=== PATIENT | male | born 1975 | race Two or more races ===

== ENCOUNTER 2017-01-05 09:03 | Inpatient (IN) | payer OTHER ==
[2017-01-05] VITALS (15 sets, daily range): BP systolic 100–159; BP diastolic 64–109
[~2017-01-05] VITALS: Ht 172.7 cm; Wt 111.6 kg
[2017-01-05] MEDS ORDERED: IV NORMAL SALINE 500ML BAG 500 ML IV ONE (11:30)
[2017-01-05] MEDS ORDERED: NORT75CA PO (12:12)
[2017-01-05] MEDS ORDERED: FURO-68 PO (12:12)
[2017-01-05] MEDS ORDERED: METF10002 PO (12:12)
[2017-01-05] MEDS ORDERED: NORT50CA PO (12:12)
[2017-01-05] MEDS ORDERED: DIPH25CA58 PO (12:12)
[2017-01-05] MEDS ORDERED: METO50TA2 PO (12:12)
[2017-01-05] MEDS ORDERED: ATOR10TA60 PO (12:12)
[2017-01-05] MEDS ORDERED: CICL6.1H IH (12:12)
[2017-01-05] MEDS ORDERED: WARF4TAB7 PO (12:42)
[2017-01-05] MEDS ORDERED: IPRA0.2S5 NEB (12:42)
[2017-01-05] MEDS ORDERED: ALBU2.5V14 NEB (12:42)
[2017-01-05] MEDS ORDERED: PROAIR RESPICL90 MCG IH (12:42)
[2017-01-05] MEDS ORDERED: NPH,100V SQ (12:42)
[2017-01-05] MEDS ORDERED: CALC200T3 PO (12:42)
[2017-01-05] MEDS ORDERED: INSU100V5 IJ ×2 (12:42)
[2017-01-05] MEDS ORDERED: MORPHINE SULFATE 2 MG/ML DISP.SYRIN. IV PRN (13:00)
[2017-01-05] MEDS ORDERED: ONDANSETRON PF 4 MG/2 ML VIAL. IV PRN (13:00)
[2017-01-05] MEDS ORDERED: ACETAMINOPHEN 325 MG TABLET. PO PRN (13:00)
[2017-01-05] MEDS ORDERED: PIP/TAZO PER PHARMACY MC PRN (13:15)
[2017-01-05] MEDS ORDERED: VANCOMYCIN PER PHARMACY MC PRN (13:15)
[2017-01-05] MEDS ORDERED: VANCOMYCIN 2 GM in IV NORMAL SALINE 500ML BAG 500 ML IV SCH (13:15)
[2017-01-05] MEDS ORDERED: CALCIUM CARBONATE 500 MG TAB.CHEW PO PRN (13:15)
[2017-01-05] MEDS ORDERED: DEXTROSE 50% 25 GM / 50ML DISP.SYRIN. IV PRN (13:15)
[2017-01-05 13:44] LABS: HCO3 ABG 31 mmol/L (21-28); PH ABG 7.29 (7.35-7.45); PO2 ABG 91 mmHg (75-108); SAT O2 ABG 96 % (92-99)
[2017-01-05 13:48] LABS: FIO2 ABG 45; PCO2 ABG 66 mmHg (35-46)
[2017-01-05] MEDS ORDERED: FUROSEMIDE 40 MG TABLET PO SCH (14:00)
[2017-01-05] MEDS ORDERED: methylPREDNISolone SOD SUCC PF 40 MG/ML VIAL. IV SCH (14:00)
[2017-01-05] MEDS ORDERED: VANCOMYCIN 2 GM in IV NORMAL SALINE 500ML BAG 500 ML IV ONE (14:00)
[2017-01-05] MEDS ORDERED: FUROSEMIDE 20 MG/2 ML VIAL IVP ONE (14:00)
[2017-01-05 14:19] LABS: BASO % 0 % (0-3); EOS % 0 % (0-3); HEMATOCRIT 35.7 % (39.0-53.0); HEMOGLOBIN 11.7 g/dL (13.0-17.5); LYMPH # 0.3 x10^3/uL (1.0-4.8); LYMPH % 2 % (24-48); MEAN CORPUSCULAR HEMOGLOBIN 29 pg (25-35); MEAN CORPUSCULAR HGB CONC 33 g/dL (31-37); MEAN CORPUSCULAR VOLUME 90 fL (79-100); MONO % 4 % (0-9); NEUT % 94 % (31-73); PLATELET COUNT 269 x10^3/uL (140-400); RED BLOOD COUNT 3.99 x10^6/uL (4.30-5.70); RED CELL DISTRIBUTION WIDTH 14.8 % (11.5-14.5); WHITE BLOOD COUNT 15.2 x10^3/uL (4.0-11.0)
--- NOTE | 2017-01-05 14:28 | EKG ---
[facility] [address] [place] [address] Test Date: 2017-01-05 Test Time: 14:27:03 Pat Name: CANELO VÁSQUEZ Department: Room: 105 1 Gender: M Admissions Director: ANDREI : 1975 Requested By: ADEN CEE Order Number: [id number] Reading MD: Measurements Intervals [place] Rate: 122 P: -97 LA: 128 QRS: 99 QRSD: 106 T: 65 QT: 358 QTc: 511 Interpretive Statements SINUS TACHYCARDIA RIGHTWARD AXIS T ABNORMALITY IN ANTERIOR LEADS ABNORMAL ECG RI6.01 No previous ECG available for comparison
[2017-01-05 14:37] LABS: CALCIUM 8.7 mg/dL (8.5-10.1); GFR 83.2; POTASSIUM 4.8 mmol/L (3.5-5.1)
--- NOTE | 2017-01-05 14:44 | CONS ---
DATE OF CONSULTATION: 01/05/2017 ATTENDING PHYSICIAN: Dr. Caballero. REASON FOR CONSULTATION: Respiratory failure, pneumonia. HISTORY OF PRESENT ILLNESS: The patient is a 41-year-old, morbidly obese male who has history of sarcoidosis diagnosed 10 years ago. He states he is on prednisone 20 mg daily. 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 He also has history of pulmonary embolism over 2 years ago for which he is on Coumadin. He was brought into [facility] with increasing shortness of breath. He was recently treated with Z-JASPER for respiratory tract infection. His oral steroids were increased from 20-50 mg. In the ER, he was in respiratory distress. He had abnormal arterial blood gases, which showed acute respiratory acidosis with a pH of 7.28, pCO2 of 67 and pO2 of 439 on 100% oxygen. He is now on 40% oxygen. He is on BiPAP. He is being transferred to the ICU at [facility] for further care. I have reviewed the patient's chest x-ray. There was no old x-ray available for comparison. There was diffuse bilateral patchy infiltrates, some of them appear nodular. No known cancer. PAST MEDICAL HISTORY: 1. History of sarcoidosis diagnosed 10 years ago, chronically on 20 mg of prednisone. 2. History of pulmonary embolism diagnosed 2 years ago, chronically on Coumadin. 3. History of tobaccoism, quit 10 years ago. Possible underlying chronic obstructive pulmonary disease. 4. Suspected TANNER. 5. Possible cor pulmonale. PAST SURGICAL HISTORY: No recent surgery. ALLERGIES: PENICILLIN AND CODEINE. MEDICATIONS: From [facility] were reviewed. REVIEW OF SYSTEMS: Twelve-point system obtained. Pertinent positives discussed in history of present illness, otherwise noncontributory. All systems that were negative were reviewed as well. SOCIAL HISTORY: Smoked for about 20 years before quitting 10 years ago. PHYSICAL EXAMINATION: GENERAL: He is comfortable while on BiPAP. VITAL SIGNS: Stable, afebrile, pulse ox is 99% on 40% FiO2 via BiPAP. HEENT: Sclerae nonicteric. NECK: Supple. LUNGS: With anterior rhonchi bilaterally. CARDIOVASCULAR: Regular rate and rhythm. ABDOMEN: Soft, obese. EXTREMITIES: With 1+ pitting edema. LABORATORY DATA: Reviewed. His lactic acid was 1.5. Troponin 0.057. ABGs with a pH of 7.28, pCO2 of 67 and pO2 of 439 on 100% BiPAP. His BUN is 12, creatinine 0.9, bicarbonate 38. White cell count 17.7, hemoglobin 4.1 and platelets are 182. IMPRESSION: 1. 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 I cannot exclude superimposed congestive left heart or right heart failure. 2. Chronic steroid dependent sarcoidosis. Some of the parenchymal abnormalities seen on the chest x-ray may be related to interstitial fibrotic changes. We will obtain CT chest for further evaluation. 3. History of pulmonary embolism diagnosed 2 years ago, on chronic anticoagulation. His INR was 3.8. We will have to hold Coumadin till his INR is in the therapeutic range. 4. Possible underlying chronic obstructive pulmonary disease. 5. Obesity with suspected obstructive sleep apnea. RECOMMENDATIONS: 1. Continue with present BiPAP. 2. Follow the ABGs and make necessary adjustments 3. Noncontrast CT chest to better evaluate for parenchymal abnormalities/ fibrotic processes and to rule out any nodular infiltrates. 4. Hold Coumadin and then restart it when the INR is between 2 and 3. 5. Obtain echocardiogram to assess for LV function. 6. Mild diuresis. 7. We will ask more detailed history about his pulmonary embolism once he is off the BiPAP. 8. Discussed with RN and RT. We will follow along with you. Critical care time 39 minutes. CHEVY SHEFFIELD MD DR: BRITNI/vijay JOB#: [id number] / [id number] ARLENE
[2017-01-05] MEDS ORDERED: IOHEXOL 300 MG/ML 75 ML VIAL IV ONE (14:45)
[2017-01-05] MEDS ORDERED: CONTRAST GIVEN MC PRN (15:00)
[2017-01-05] MEDS: methylPREDNISolone SOD SUCC PF 40 MG/ML VIAL. IV SCH ×2 (15:10→21:38)
[2017-01-05] MEDS: HEPARIN PF for SUB-Q USE 5,000 UNIT/0.5 ML VIAL. SQ SCH ×2 (15:11→21:39)
[2017-01-05] MEDS: PIPERACILLIN/TAZOBACTAM 4.5 GM in IV NORMAL SALINE 100ML 100 ML IV SCH ×2 (15:13→18:00)
[2017-01-05] MEDS: PANTOPRAZOLE 40 MG TABLET. PO SCH (15:14)
[2017-01-05] MEDS: METOPROLOL TART IMMED RELEASE 50 MG TABLET PO SCH ×2 (15:14→20:55)
[2017-01-05 15:28] LABS: PLT ESTIMATE ADEQUATE (ADEQUATE); POLYCHROMASIA SLIGHT
[2017-01-05] MEDS ORDERED: hydrALAZINE 20 MG/ML VIAL. IVP PRN (15:30)
--- NOTE | 2017-01-05 15:34 | PDOC1 ---
History and Physical Date of Admission Date of Admission 01/05/17 Identification/Chief Complaint Chief Complaint sob Problems: Source Source: Chart review History of Present Illness History of Present Illness 41yo M, from intermediate, h/o sarcoidosis, PE on coumadin, was transferred from [facility] for resp failure. Pt is on bipap seen in ICU, lethargic, cannot provide history. [facility], pt got PNA, SOB WAS on azithromycin for 5days, no improvement, came to ER. denies cough, ABG showed PH 7.28/pco2 66/po2 39 on RA, then put on Bipap. pt has HR 140s, INR 3.8 today chronically on prednisone 20mg daily, recent up to 50mg for sob. Past Medical History Past Medical History sarcodosis, htn pe dm2 Past Surgical History Past Surgical History: No pertinent history Family History Family History: Diabetes Social History Smoke: Quit ALCOHOL: social Drugs: None Current Problem List Problem List Problems Medical Problems: (1) Respiratory failure Status: Acute Current Medications Current Medications Current Medications Medications (Trade) Dose Ordered Sig/Roxi Start Time Stop Time Status Last Admin Dose Admin Acetaminophen (Tylenol) 650 mg PRN Q6HRS PRN 01/05/17 13:00 Acetaminophen/ Hydrocodone Bitart (Lortab 5/325) 1 tab PRN Q4HRS PRN 01/05/17 13:00 Albuterol Sulfate (Ventolin Neb Soln) 2.5 mg RTQID 01/05/17 16:00 Albuterol/ Ipratropium 3 ml 3 ml RTQID 01/05/17 16:00 Atorvastatin Calcium (Lipitor) 10 mg QHS 01/05/17 21:00 Budesonide (Pulmicort) 0.5 mg RTBID 01/05/17 20:00 Calcium Carbonate/ Glycine (Tums) 400 mg PRN TID PRN 01/05/17 13:15 Dextrose 12.5 gm 12.5 gm PRN Q15MIN PRN 01/05/17 13:15 Diphenhydramine HCl (Benadryl) 25 mg TID PRN PRN 01/05/17 13:15 Furosemide (Lasix) 40 mg DAILY 01/06/17 09:00 Heparin Sodium (Porcine) 5,000 unit Q8HRS 01/05/17 14:00 01/05/17 15:11 5,000 UNIT Info (Do NOT chart on this entry -- for MONITORING) 1 each PRN DAILY PRN 01/05/17 15:00 01/07/17 14:59 Insulin Aspart (Novolog) 0-9 UNITS TIDWMEALS 01/05/17 17:00 Insulin Detemir (Levemir) 20 units QHS 01/05/17 21:00 Iohexol (Omnipaque 300 Mg/ml) 75 ml 1X ONCE 01/05/17 14:45 01/05/17 14:46 DC Levofloxacin/ Dextrose (LEVAQUIN 500mg PREMIX) 100 ml @ 100 mls/hr Q24H 01/05/17 14:00 01/05/17 15:16 100 MLS/HR Methylprednisolone Sodium Succinate (Solu-Medrol 40mg Vial) 40 mg Q8HRS 01/05/17 14:00 UNV Metoprolol Tartrate (Lopressor) 50 mg BID 01/05/17 14:00 01/05/17 15:14 50 MG Morphine Sulfate 2 mg PRN Q1HR PRN 01/05/17 13:00 Nortriptyline HCl (Pamelor) 75 mg QHS 01/05/17 21:00 Ondansetron HCl (Zofran) 4 mg PRN Q6HRS PRN 01/05/17 13:00 Pantoprazole Sodium 40 mg 40 mg DAILYAC 01/05/17 14:00 01/05/17 15:14 40 MG Piperacillin Sod/ Tazobactam Sod (Zosyn Per Pharmacy) 1 each PRN DAILY PRN 01/05/17 13:15 Piperacillin Sod/ Tazobactam Sod/ Sodium Chloride (Zosyn/Iv Sodium Chloride 0.9% 100ml) 100 ml @ 200 mls/hr Q6HRS 01/05/17 14:00 01/05/17 15:13 200 MLS/HR Vancomycin HCl (Vanco Per Pharmacy) 1 each PRN DAILY PRN 01/05/17 13:15 Vancomycin HCl/ Sodium Chloride (Iv Sodium Chloride 0.9% 500ml Bag) 500 ml @ 250 mls/hr ONCE ONCE 01/05/17 14:00 01/05/17 15:59 01/05/17 15:15 250 MLS/HR Warfarin Sodium (Coumadin - No Dose Today) 1 each 1X WARF ONCE 01/05/17 16:00 01/05/17 16:01 Warfarin Sodium (Coumadin Per Pharmacy) 1 each PRN DAILY PRN 01/05/17 13:15 Warfarin Sodium (Coumadin) 4 mg DAILY 01/06/17 09:00 UNV Allergies Allergies Allergies Coded Allergies Type Severity Reaction Last Updated Verified Penicillins Allergy Intermediate TOLERATES CEFTRIAXONE 01/05/17 No codeine Allergy Intermediate 01/05/17 No ROS Review of System CONSTITUTIONAL: No fever or chills EYES: No recent changes SKIN: No rash or itching CARDIOVASCULAR: No chest pain, syncope, palpitations, or edema RESPIRATORY: No SOB or cough GASTROINTESTINAL: No nausea, vomiting or abdominal pain NEUROLOGICAL: No headaches or weakness ENDOCRINE: No cold or heat intolerance GENITOURINARY: No urgency or frequency of urination MUSCULOSKELETAL: No back pain or joint pain LYMPHATICS: No enlarged lymph nodes PSYCHIATRIC: No anxiety or depression Physical Exam Physical Exam GEN.: No apparent distress.. lethargic, no answer question or follow commands. HEENT: Head is normocephalic, atraumatic NECK: Supple. LUNGS: bl severe decreased bs HEART: RRR, S1, S2 present. Peripheral pulses intact. tachycardia ABDOMEN: Soft, nontender. Positive bowel sounds. EXTREMITIES: Without any cyanosis. bl leg trace edema NEUROLOGIC: Normal speech, normal tone PSYCHIATRIC: Normal affect, normal mood. SKIN: No ulcerations Vitals Vitals Vital Signs Date Time Temp Pulse Resp B/P Pulse Ox O2 Delivery O2 Flow Rate FiO2 01/05/17 15:14 124 159/91 Labs Labs Laboratory Tests Test 01/05/17 13:30 01/05/17 13:50 O2 Saturation 96% (92-99) Arterial Blood pH 7.29 (7.35-7.45) Arterial Blood pCO2 at Patient Temp 66mmHg (35-46) Arterial Blood pO2 at Patient Temp 91mmHg (75-108) Arterial Blood HCO3 31mmol/L (21-28) Arterial Blood Base Excess 3mmol/L (-3-3) FiO2 45 White Blood Count 15.2x10^3/uL (4.0-11.0) Red Blood Count 3.99x10^6/uL (4.30-5.70) Hemoglobin 11.7g/dL (13.0-17.5) Hematocrit 35.7% (39.0-53.0) Mean Corpuscular Volume 90fL (79-100) Mean Corpuscular Hemoglobin 29pg (25-35) Mean Corpuscular Hemoglobin Concent 33g/dL (31-37) Red Cell Distribution Width 14.8% (11.5-14.5) Platelet Count 269x10^3/uL (140-400) Neutrophils (%) (Auto) 94% (31-73) Lymphocytes (%) (Auto) 2% (24-48) Monocytes (%) (Auto) 4% (0-9) Eosinophils (%) (Auto) 0% (0-3) Basophils (%) (Auto) 0% (0-3) Neutrophils # (Auto) 14.3x10^3uL (1.8-7.7) Lymphocytes # (Auto) 0.3x10^3/uL (1.0-4.8) Monocytes # (Auto) 0.6x10^3/uL (0.0-1.1) Eosinophils # (Auto) 0.0x10^3/uL (0.0-0.7) Basophils # (Auto) 0.0x10^3/uL (0.0-0.2) Sodium Level 137mmol/L (136-145) Potassium Level 4.8mmol/L (3.5-5.1) Chloride Level 98mmol/L (98-107) Carbon Dioxide Level 33mmol/L (21-32) Anion Gap 6 (6-14) Blood Urea Nitrogen 14mg/dL (8-26) Creatinine 1.0mg/dL (0.7-1.3) Estimated GFR (Cockcroft-Gault) 83.2 Glucose Level 227mg/dL (70-99) Calcium Level 8.7mg/dL (8.5-10.1) Laboratory Tests Test 01/05/17 13:30 01/05/17 13:50 O2 Saturation 96% (92-99) Arterial Blood pH 7.29 (7.35-7.45) Arterial Blood pCO2 at Patient Temp 66mmHg (35-46) Arterial Blood pO2 at Patient Temp 91mmHg (75-108) Arterial Blood HCO3 31mmol/L (21-28) Arterial Blood Base Excess 3mmol/L (-3-3) FiO2 45 White Blood Count 15.2x10^3/uL (4.0-11.0) Red Blood Count 3.99x10^6/uL (4.30-5.70) Hemoglobin 11.7g/dL (13.0-17.5) Hematocrit 35.7% (39.0-53.0) Mean Corpuscular Volume 90fL (79-100) Mean Corpuscular Hemoglobin 29pg (25-35) Mean Corpuscular Hemoglobin Concent 33g/dL (31-37) Red Cell Distribution Width 14.8% (11.5-14.5) Platelet Count 269x10^3/uL (140-400) Neutrophils (%) (Auto) 94% (31-73) Lymphocytes (%) (Auto) 2% (24-48) Monocytes (%) (Auto) 4% (0-9) Eosinophils (%) (Auto) 0% (0-3) Basophils (%) (Auto) 0% (0-3) Neutrophils # (Auto) 14.3x10^3uL (1.8-7.7) Lymphocytes # (Auto) 0.3x10^3/uL (1.0-4.8) Monocytes # (Auto) 0.6x10^3/uL (0.0-1.1) Eosinophils # (Auto) 0.0x10^3/uL (0.0-0.7) Basophils # (Auto) 0.0x10^3/uL (0.0-0.2) Sodium Level 137mmol/L (136-145) Potassium Level 4.8mmol/L (3.5-5.1) Chloride Level 98mmol/L (98-107) Carbon Dioxide Level 33mmol/L (21-32) Anion Gap 6 (6-14) Blood Urea Nitrogen 14mg/dL (8-26) Creatinine 1.0mg/dL (0.7-1.3) Estimated GFR (Cockcroft-Gault) 83.2 Glucose Level 227mg/dL (70-99) Calcium Level 8.7mg/dL (8.5-10.1) VTE Prophylaxis Ordered VTE Prophylaxis Devices: Yes VTE Pharmacological Prophylaxi: No Assessment/Plan Assessment/Plan 1 acute hypoxic and hypercapnic resp failure 2. h/o sarcoidosis 3. h/o PE on coumadin 4. HAP 5. obesity 6. DM2 7. HTN 8. SINUS tachycardia 9. from intermediate 10. sepsis with 4 plan: 1. pulm consult 2. ICU care, on bipap for now 3. check CT chest to rule out PE, and see if really has HAP, ALSO sarcoidosis 4. steroid, duoneb dvt, gi ppx add insulin, SSI hold warfarin for today, INR daily ABG STAT ADEN CEE MD Jan 05, 2017 15:33
[2017-01-05] MEDS: IPRATRPIUM/ALBUTEROL 0.5/2.5MG 3 ML NEBU. NEB SCH ×2 (15:38→20:13)
[2017-01-05] MEDS: ALBUTEROL SULFATE 2.5 MG/3 ML NEBU. NEB SCH ×2 (16:00→20:00)
[2017-01-05 16:36] LABS: HCO3 ABG 31 mmol/L (21-28); PCO2 ABG 57 mmHg (35-46); PH ABG 7.35 (7.35-7.45); PO2 ABG 65 mmHg (75-108); SAT O2 ABG 92 % (92-99)
[2017-01-05 16:38] LABS: FIO2 ABG 35
--- NOTE | 2017-01-05 17:31 | RAD ---
INDICATION: 41-year-old male with respiratory failure, shortness of air, pneumonia, sarcoidosis. COMPARISON: None TECHNIQUE: Axial CT images obtained through the chest following the intravenous administration of 75 cc of Omni 300, utilizing an angiogram protocol. 3D images processed per protocol. One or more of the following individualized dose reduction techniques were utilized for this examination: 1. Automated exposure control; 2. Adjustment of the mA and/or kV according to patient size; 3. Use of iterative reconstruction technique. FINDINGS: The pulmonary arteries are adequately opacified without intraluminal filling defect to suggest pulmonary embolus. The aorta is normal in caliber. The heart is normal in size without pericardial effusion. Prominent mediastinal or hilar lymph nodes are present, likely reactive in nature. There are diffuse ground-glass and more nodular, dense opacities present throughout both lungs. There is no pleural effusion or pneumothorax. The central airways appear patent. The visualized osseous structures and overlying soft tissues demonstrate no acute or suspicious finding. The visualized upper abdomen demonstrates no acute finding. IMPRESSION: No CT evidence of pulmonary embolus. Diffuse ground-glass and nodular opacities throughout both lungs, may represent an infectious etiology although findings may also be secondary to known history of sarcoidosis. Electronically signed by: Kaykay Mahmood (Jan 05, 2017 17:29:58)
[2017-01-05] MEDS: INSULIN ASPART 300 UNITS/3 ML INSULN.PEN SQ SCH ×2 (17:34→17:35)
[2017-01-05] MEDS: HYDROCODONE/APAP 5/325MG TABLET. PO PRN (19:39)
[2017-01-05] MEDS: BUDESONIDE 0.5 MG/2 ML NEBU NEB SCH (20:13)
[2017-01-05] MEDS: ATORVASTATIN CALCIUM 10 MG TABLET. PO SCH (20:52)
[2017-01-05] MEDS: NORTRIPTYLINE 25 MG CAPSULE PO SCH (20:53)
[2017-01-05] MEDS: INSULIN DETEMIR 300 UNITS/3 ML INSULN.PEN. SQ SCH (20:56)
[2017-01-05] MEDS: VANCOMYCIN 1.5 GM in IV NORMAL SALINE 500ML BAG 500 ML IV SCH (22:34)
[2017-01-06] VITALS (13 sets, daily range): BP systolic 114–144; BP diastolic 66–91
[2017-01-06] MEDS: PIPERACILLIN/TAZOBACTAM 4.5 GM in IV NORMAL SALINE 100ML 100 ML IV SCH ×5 (00:59→23:58)
[2017-01-06] MEDS: HYDROCODONE/APAP 5/325MG TABLET. PO PRN ×4 (02:17→19:38)
[2017-01-06 03:25] LABS: BASO % 0 % (0-3); EOS % 0 % (0-3); HEMATOCRIT 32.5 % (39.0-53.0); HEMOGLOBIN 10.8 g/dL (13.0-17.5); LYMPH # 0.5 x10^3/uL (1.0-4.8); LYMPH % 3 % (24-48); MEAN CORPUSCULAR HEMOGLOBIN 29 pg (25-35); MEAN CORPUSCULAR HGB CONC 33 g/dL (31-37); MEAN CORPUSCULAR VOLUME 88 fL (79-100); MONO % 5 % (0-9); NEUT % 91 % (31-73); PLATELET COUNT 286 x10^3/uL (140-400); RED CELL DISTRIBUTION WIDTH 14.7 % (11.5-14.5); WHITE BLOOD COUNT 14.9 x10^3/uL (4.0-11.0)
[2017-01-06 03:34] LABS: INR 4.4 (0.8-1.1); PROTHROMBIN TIME PATIENT 39.7 SEC (11.7-14.0)
[2017-01-06 03:42] LABS: CALCIUM 8.1 mg/dL (8.5-10.1); CREATININE 0.6 mg/dL (0.7-1.3); POTASSIUM 4.4 mmol/L (3.5-5.1)
[2017-01-06] MEDS: methylPREDNISolone SOD SUCC PF 40 MG/ML VIAL. IV SCH ×3 (05:30→20:59)
[2017-01-06] MEDS: HEPARIN PF for SUB-Q USE 5,000 UNIT/0.5 ML VIAL. SQ SCH (05:31)
[2017-01-06] MEDS: VANCOMYCIN 1.5 GM in IV NORMAL SALINE 500ML BAG 500 ML IV SCH (06:29)
[2017-01-06] MEDS: INSULIN ASPART 300 UNITS/3 ML INSULN.PEN SQ SCH ×6 (07:30→17:50)
[2017-01-06] MEDS: IPRATRPIUM/ALBUTEROL 0.5/2.5MG 3 ML NEBU. NEB SCH ×4 (07:55→21:19)
[2017-01-06] MEDS: BUDESONIDE 0.5 MG/2 ML NEBU NEB SCH ×2 (07:55→21:19)
[2017-01-06] MEDS ORDERED: WARFARIN 4 MG TABLET. PO SCH (09:00)
--- NOTE | 2017-01-06 10:09 | PDOC ---
PULMONARY PROGRESS NOTES Subjective feels better,off BIPAP Vitals Vital Signs Date Time Temp Pulse Resp B/P Pulse Ox O2 Delivery O2 Flow Rate FiO2 01/06/17 07:55 98 Venturi Mask 9.0 01/06/17 06:33 24 01/06/17 06:00 98 132/73 01/06/17 04:00 97.7 97.7 General: Alert, No acute distress Lungs: Other (decrease bs) Cardiovascular: S1 Abdomen: Soft Neuro Exam: Alert Extremities: Other (1+edema) Labs Laboratory Tests Test 01/05/17 12:17 01/05/17 13:30 01/05/17 13:40 01/05/17 13:50 Nasal Screen MRSA (PCR) Negative (Negative) O2 Saturation 96% (92-99) Arterial Blood pH 7.29 (7.35-7.45) Arterial Blood pCO2 at Patient Temp 66mmHg (35-46) Arterial Blood pO2 at Patient Temp 91mmHg (75-108) Arterial Blood HCO3 31mmol/L (21-28) Arterial Blood Base Excess 3mmol/L (-3-3) FiO2 45 Lactic Acid Level 2.7mmol/L (0.4-2.0) White Blood Count 15.2x10^3/uL (4.0-11.0) Red Blood Count 3.99x10^6/uL (4.30-5.70) Hemoglobin 11.7g/dL (13.0-17.5) Hematocrit 35.7% (39.0-53.0) Mean Corpuscular Volume 90fL (79-100) Mean Corpuscular Hemoglobin 29pg (25-35) Mean Corpuscular Hemoglobin Concent 33g/dL (31-37) Red Cell Distribution Width 14.8% (11.5-14.5) Platelet Count 269x10^3/uL (140-400) Neutrophils (%) (Auto) 94% (31-73) Lymphocytes (%) (Auto) 2% (24-48) Monocytes (%) (Auto) 4% (0-9) Eosinophils (%) (Auto) 0% (0-3) Basophils (%) (Auto) 0% (0-3) Neutrophils # (Auto) 14.3x10^3uL (1.8-7.7) Lymphocytes # (Auto) 0.3x10^3/uL (1.0-4.8) Monocytes # (Auto) 0.6x10^3/uL (0.0-1.1) Eosinophils # (Auto) 0.0x10^3/uL (0.0-0.7) Basophils # (Auto) 0.0x10^3/uL (0.0-0.2) Segmented Neutrophils % 88% (35-66) Band Neutrophils % 6% (0-9) Lymphocytes % 2% (24-48) Atypical Lymphocytes % (Manual) 1% (0-0) Monocytes % 3% (0-10) Platelet Estimate Adequate (ADEQUATE) Polychromasia Slight Basophilic Stippling Present Sodium Level 137mmol/L (136-145) Potassium Level 4.8mmol/L (3.5-5.1) Chloride Level 98mmol/L (98-107) Carbon Dioxide Level 33mmol/L (21-32) Anion Gap 6 (6-14) Blood Urea Nitrogen 14mg/dL (8-26) Creatinine 1.0mg/dL (0.7-1.3) Estimated GFR (Cockcroft-Gault) 83.2 Glucose Level 227mg/dL (70-99) Calcium Level 8.7mg/dL (8.5-10.1) Test 01/05/17 16:25 01/05/17 16:52 01/05/17 20:52 01/06/17 03:10 O2 Saturation 92% (92-99) Arterial Blood pH 7.35 (7.35-7.45) Arterial Blood pCO2 at Patient Temp 57mmHg (35-46) Arterial Blood pO2 at Patient Temp 65mmHg (75-108) Arterial Blood HCO3 31mmol/L (21-28) Arterial Blood Base Excess 4mmol/L (-3-3) FiO2 35 Glucose (Fingerstick) 271mg/dL (70-99) 232mg/dL (70-99) White Blood Count 14.9x10^3/uL (4.0-11.0) Red Blood Count 3.70x10^6/uL (4.30-5.70) Hemoglobin 10.8g/dL (13.0-17.5) Hematocrit 32.5% (39.0-53.0) Mean Corpuscular Volume 88fL (79-100) Mean Corpuscular Hemoglobin 29pg (25-35) Mean Corpuscular Hemoglobin Concent 33g/dL (31-37) Red Cell Distribution Width 14.7% (11.5-14.5) Platelet Count 286x10^3/uL (140-400) Neutrophils (%) (Auto) 91% (31-73) Lymphocytes (%) (Auto) 3% (24-48) Monocytes (%) (Auto) 5% (0-9) Eosinophils (%) (Auto) 0% (0-3) Basophils (%) (Auto) 0% (0-3) Neutrophils # (Auto) 13.6x10^3uL (1.8-7.7) Lymphocytes # (Auto) 0.5x10^3/uL (1.0-4.8) Monocytes # (Auto) 0.8x10^3/uL (0.0-1.1) Eosinophils # (Auto) 0.0x10^3/uL (0.0-0.7) Basophils # (Auto) 0.0x10^3/uL (0.0-0.2) Prothrombin Time 39.7SEC (11.7-14.0) Prothromb Time International Ratio 4.4 (0.8-1.1) Sodium Level 138mmol/L (136-145) Potassium Level 4.4mmol/L (3.5-5.1) Chloride Level 100mmol/L (98-107) Carbon Dioxide Level 35mmol/L (21-32) Anion Gap 3 (6-14) Blood Urea Nitrogen 13mg/dL (8-26) Creatinine 0.6mg/dL (0.7-1.3) Estimated GFR (Cockcroft-Gault) 150.0 Glucose Level 229mg/dL (70-99) Calcium Level 8.1mg/dL (8.5-10.1) Test 01/06/17 08:47 Glucose (Fingerstick) 178mg/dL (70-99) Laboratory Tests Test 01/05/17 12:17 01/05/17 13:30 01/05/17 13:40 01/05/17 13:50 Nasal Screen MRSA (PCR) Negative (Negative) O2 Saturation 96% (92-99) Arterial Blood pH 7.29 (7.35-7.45) Arterial Blood pCO2 at Patient Temp 66mmHg (35-46) Arterial Blood pO2 at Patient Temp 91mmHg (75-108) Arterial Blood HCO3 31mmol/L (21-28) Arterial Blood Base Excess 3mmol/L (-3-3) FiO2 45 Lactic Acid Level 2.7mmol/L (0.4-2.0) White Blood Count 15.2x10^3/uL (4.0-11.0) Red Blood Count 3.99x10^6/uL (4.30-5.70) Hemoglobin 11.7g/dL (13.0-17.5) Hematocrit 35.7% (39.0-53.0) Mean Corpuscular Volume 90fL (79-100) Mean Corpuscular Hemoglobin 29pg (25-35) Mean Corpuscular Hemoglobin Concent 33g/dL (31-37) Red Cell Distribution Width 14.8% (11.5-14.5) Platelet Count 269x10^3/uL (140-400) Neutrophils (%) (Auto) 94% (31-73) Lymphocytes (%) (Auto) 2% (24-48) Monocytes (%) (Auto) 4% (0-9) Eosinophils (%) (Auto) 0% (0-3) Basophils (%) (Auto) 0% (0-3) Neutrophils # (Auto) 14.3x10^3uL (1.8-7.7) Lymphocytes # (Auto) 0.3x10^3/uL (1.0-4.8) Monocytes # (Auto) 0.6x10^3/uL (0.0-1.1) Eosinophils # (Auto) 0.0x10^3/uL (0.0-0.7) Basophils # (Auto) 0.0x10^3/uL (0.0-0.2) Segmented Neutrophils % 88% (35-66) Band Neutrophils % 6% (0-9) Lymphocytes % 2% (24-48) Atypical Lymphocytes % (Manual) 1% (0-0) Monocytes % 3% (0-10) Platelet Estimate Adequate (ADEQUATE) Polychromasia Slight Basophilic Stippling Present Sodium Level 137mmol/L (136-145) Potassium Level 4.8mmol/L (3.5-5.1) Chloride Level 98mmol/L (98-107) Carbon Dioxide Level 33mmol/L (21-32) Anion Gap 6 (6-14) Blood Urea Nitrogen 14mg/dL (8-26) Creatinine 1.0mg/dL (0.7-1.3) Estimated GFR (Cockcroft-Gault) 83.2 Glucose Level 227mg/dL (70-99) Calcium Level 8.7mg/dL (8.5-10.1) Test 01/05/17 16:25 01/05/17 16:52 01/05/17 20:52 01/06/17 03:10 O2 Saturation 92% (92-99) Arterial Blood pH 7.35 (7.35-7.45) Arterial Blood pCO2 at Patient Temp 57mmHg (35-46) Arterial Blood pO2 at Patient Temp 65mmHg (75-108) Arterial Blood HCO3 31mmol/L (21-28) Arterial Blood Base Excess 4mmol/L (-3-3) FiO2 35 Glucose (Fingerstick) 271mg/dL (70-99) 232mg/dL (70-99) White Blood Count 14.9x10^3/uL (4.0-11.0) Red Blood Count 3.70x10^6/uL (4.30-5.70) Hemoglobin 10.8g/dL (13.0-17.5) Hematocrit 32.5% (39.0-53.0) Mean Corpuscular Volume 88fL (79-100) Mean Corpuscular Hemoglobin 29pg (25-35) Mean Corpuscular Hemoglobin Concent 33g/dL (31-37) Red Cell Distribution Width 14.7% (11.5-14.5) Platelet Count 286x10^3/uL (140-400) Neutrophils (%) (Auto) 91% (31-73) Lymphocytes (%) (Auto) 3% (24-48) Monocytes (%) (Auto) 5% (0-9) Eosinophils (%) (Auto) 0% (0-3) Basophils (%) (Auto) 0% (0-3) Neutrophils # (Auto) 13.6x10^3uL (1.8-7.7) Lymphocytes # (Auto) 0.5x10^3/uL (1.0-4.8) Monocytes # (Auto) 0.8x10^3/uL (0.0-1.1) Eosinophils # (Auto) 0.0x10^3/uL (0.0-0.7) Basophils # (Auto) 0.0x10^3/uL (0.0-0.2) Prothrombin Time 39.7SEC (11.7-14.0) Prothromb Time International Ratio 4.4 (0.8-1.1) Sodium Level 138mmol/L (136-145) Potassium Level 4.4mmol/L (3.5-5.1) Chloride Level 100mmol/L (98-107) Carbon Dioxide Level 35mmol/L (21-32) Anion Gap 3 (6-14) Blood Urea Nitrogen 13mg/dL (8-26) Creatinine 0.6mg/dL (0.7-1.3) Estimated GFR (Cockcroft-Gault) 150.0 Glucose Level 229mg/dL (70-99) Calcium Level 8.1mg/dL (8.5-10.1) Test 01/06/17 08:47 Glucose (Fingerstick) 178mg/dL (70-99) Medications Active Scripts Medications Dose Route/Sig Days Date Category Proair Respiclick (Albuterol Sulfate) 90 Mcg Aer.pow.ba 1 Puff IH TWICE WEEKLY PRN 01/05/17 Reported Ipratropium Comfort 0.2 Mg/1 Ml Solution 1 Vial NEB BID 01/05/17 Reported Humulin R (Insulin Regular, Human) 100 Unit/1 Ml Vial 0 IJ 01/05/17 Reported Humulin R (Insulin Regular, Human) 100 Unit/1 Ml Vial 100 Unit IJ TIDAC 01/05/17 Reported Humulin N (Nph, Human Insulin Isophane) 100 Unit/1 Ml Vial 15 Unit SQ BID 01/05/17 Reported Albuterol Sulfate Conc Neb Soln (Albuterol Sulfate) 2.5 Mg/0.5 Ml Vial.neb 2.5 Mg NEB BID 01/05/17 Reported Warfarin Sodium 4 Mg Tablet 1 Tab PO DAILY 01/05/17 Reported Tums (Calcium Carbonate) 200 Mg Tab.chew 400 Mg PO TID PRN 01/05/17 Reported Nortriptyline Hcl 75 Mg Capsule 75 Mg PO HS 01/05/17 Reported Nortriptyline Hcl 50 Mg Capsule 50 Mg PO HS 01/05/17 Reported Metoprolol Tartrate 50 Mg Tablet 1 Tab PO BID 01/05/17 Reported Metformin Hcl 1,000 Mg Tablet 1 Tab PO BID 01/05/17 Reported Lasix (Furosemide) 40 Mg Tablet 1 Tab PO DAILY 01/05/17 Reported Benadryl (Diphenhydramine Hcl) 25 Mg Capsule 2 Cap PO TID PRN 01/05/17 Reported Atorvastatin Calcium 10 Mg Tablet 1 Tab PO DAILY 01/05/17 Reported Alvesco (Ciclesonide) 6.1 Gm Hfa.aer.ad 160 Mcg IH [id number] 01/05/17 Reported Impression . 1. 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 I cannot exclude superimposed congestive left heart or right heart failure. 2. 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 History of pulmonary embolism diagnosed 2 years ago, on chronic anticoagulation. Family h/o factor V leiden mutation(mother), Pt was negative 4. Possible underlying chronic obstructive pulmonary disease. 5. Obesity with suspected obstructive sleep apnea. s. Plan . 1. Continue with present canula/ prn BiPAP. 2. Follow the ABGs improved. 3. CT chest reviewed 4. Hold Coumadin and then restart it when the INR is between 2 and 3. 5. 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 Mild diuresis. 7. Discussed with RN and RT. 8. Steroids TRANSFER TO [facility] CHEVY SHEFFIELD MD Jan 06, 2017 10:09
[2017-01-06] MEDS: METOPROLOL TART IMMED RELEASE 50 MG TABLET PO SCH ×2 (10:35→20:43)
[2017-01-06] MEDS: PANTOPRAZOLE 40 MG TABLET. PO SCH (10:35)
[2017-01-06] MEDS: FUROSEMIDE 40 MG TABLET PO SCH (10:35)
--- NOTE | 2017-01-06 12:48 | PDOC ---
PROGRESS NOTES Chief Complaint Chief Complaint 1. acute hypoxic and hypercapnic resp failure 2. h/o sarcoidosis 3. h/o PE on coumadin 4. HAP 5. obesity, BMI 37 6. DM2 7. HTN 8. SIRS, sepsis, pneumonia History of Present Illness History of Present Illness pulm consult following cont. ICU care, has been off bipap this AM, savannah has TANNER marked pulm htn, secondary steroid, duoneb Vitals Vitals Vital Signs Date Time Temp Pulse Resp B/P Pulse Ox O2 Delivery O2 Flow Rate FiO2 01/06/17 11:50 96 Nasal Cannula 4.0 01/06/17 10:35 116 144/73 01/06/17 09:00 24 01/06/17 08:00 98.9 98.9 Physical Exam General: Alert, Oriented X3, Cooperative, mild distress, moderate distress Heart: Regular rate, No murmurs Lungs: Other (decrease bs, w. rales, no wheeze) Abdomen: Normal bowel sounds, Soft Extremities: No clubbing, No cyanosis, No edema Skin: No rashes, No breakdown Labs LABS Laboratory Tests Test 01/05/17 13:30 01/05/17 13:40 01/05/17 13:50 01/05/17 16:25 O2 Saturation 96% (92-99) 92% (92-99) Arterial Blood pH 7.29 (7.35-7.45) 7.35 (7.35-7.45) Arterial Blood pCO2 at Patient Temp 66mmHg (35-46) 57mmHg (35-46) Arterial Blood pO2 at Patient Temp 91mmHg (75-108) 65mmHg (75-108) Arterial Blood HCO3 31mmol/L (21-28) 31mmol/L (21-28) Arterial Blood Base Excess 3mmol/L (-3-3) 4mmol/L (-3-3) FiO2 45 35 Lactic Acid Level 2.7mmol/L (0.4-2.0) White Blood Count 15.2x10^3/uL (4.0-11.0) Red Blood Count 3.99x10^6/uL (4.30-5.70) Hemoglobin 11.7g/dL (13.0-17.5) Hematocrit 35.7% (39.0-53.0) Mean Corpuscular Volume 90fL (79-100) Mean Corpuscular Hemoglobin 29pg (25-35) Mean Corpuscular Hemoglobin Concent 33g/dL (31-37) Red Cell Distribution Width 14.8% (11.5-14.5) Platelet Count 269x10^3/uL (140-400) Neutrophils (%) (Auto) 94% (31-73) Lymphocytes (%) (Auto) 2% (24-48) Monocytes (%) (Auto) 4% (0-9) Eosinophils (%) (Auto) 0% (0-3) Basophils (%) (Auto) 0% (0-3) Neutrophils # (Auto) 14.3x10^3uL (1.8-7.7) Lymphocytes # (Auto) 0.3x10^3/uL (1.0-4.8) Monocytes # (Auto) 0.6x10^3/uL (0.0-1.1) Eosinophils # (Auto) 0.0x10^3/uL (0.0-0.7) Basophils # (Auto) 0.0x10^3/uL (0.0-0.2) Segmented Neutrophils % 88% (35-66) Band Neutrophils % 6% (0-9) Lymphocytes % 2% (24-48) Atypical Lymphocytes % (Manual) 1% (0-0) Monocytes % 3% (0-10) Platelet Estimate Adequate (ADEQUATE) Polychromasia Slight Basophilic Stippling Present Sodium Level 137mmol/L (136-145) Potassium Level 4.8mmol/L (3.5-5.1) Chloride Level 98mmol/L (98-107) Carbon Dioxide Level 33mmol/L (21-32) Anion Gap 6 (6-14) Blood Urea Nitrogen 14mg/dL (8-26) Creatinine 1.0mg/dL (0.7-1.3) Estimated GFR (Cockcroft-Gault) 83.2 Glucose Level 227mg/dL (70-99) Calcium Level 8.7mg/dL (8.5-10.1) Test 01/05/17 16:52 01/05/17 20:52 01/06/17 03:10 01/06/17 08:47 Glucose (Fingerstick) 271mg/dL (70-99) 232mg/dL (70-99) 178mg/dL (70-99) White Blood Count 14.9x10^3/uL (4.0-11.0) Red Blood Count 3.70x10^6/uL (4.30-5.70) Hemoglobin 10.8g/dL (13.0-17.5) Hematocrit 32.5% (39.0-53.0) Mean Corpuscular Volume 88fL (79-100) Mean Corpuscular Hemoglobin 29pg (25-35) Mean Corpuscular Hemoglobin Concent 33g/dL (31-37) Red Cell Distribution Width 14.7% (11.5-14.5) Platelet Count 286x10^3/uL (140-400) Neutrophils (%) (Auto) 91% (31-73) Lymphocytes (%) (Auto) 3% (24-48) Monocytes (%) (Auto) 5% (0-9) Eosinophils (%) (Auto) 0% (0-3) Basophils (%) (Auto) 0% (0-3) Neutrophils # (Auto) 13.6x10^3uL (1.8-7.7) Lymphocytes # (Auto) 0.5x10^3/uL (1.0-4.8) Monocytes # (Auto) 0.8x10^3/uL (0.0-1.1) Eosinophils # (Auto) 0.0x10^3/uL (0.0-0.7) Basophils # (Auto) 0.0x10^3/uL (0.0-0.2) Prothrombin Time 39.7SEC (11.7-14.0) Prothromb Time International Ratio 4.4 (0.8-1.1) Sodium Level 138mmol/L (136-145) Potassium Level 4.4mmol/L (3.5-5.1) Chloride Level 100mmol/L (98-107) Carbon Dioxide Level 35mmol/L (21-32) Anion Gap 3 (6-14) Blood Urea Nitrogen 13mg/dL (8-26) Creatinine 0.6mg/dL (0.7-1.3) Estimated GFR (Cockcroft-Gault) 150.0 Glucose Level 229mg/dL (70-99) Calcium Level 8.1mg/dL (8.5-10.1) Test 01/06/17 12:15 Glucose (Fingerstick) 326mg/dL (70-99) Review of Systems Review of Systems weakness some nausea and lethargy Assessment and Plan Assessmemt and Plan Problems Medical Problems: (1) Respiratory failure Status: Acute Problems: Comment Review of Relevant I have reviewed the following items radha (where applicable) has been applied. Labs Laboratory Tests Test 01/05/17 12:17 01/05/17 13:30 01/05/17 13:40 01/05/17 13:50 Nasal Screen MRSA (PCR) Negative (Negative) O2 Saturation 96% (92-99) Arterial Blood pH 7.29 (7.35-7.45) Arterial Blood pCO2 at Patient Temp 66mmHg (35-46) Arterial Blood pO2 at Patient Temp 91mmHg (75-108) Arterial Blood HCO3 31mmol/L (21-28) Arterial Blood Base Excess 3mmol/L (-3-3) FiO2 45 Lactic Acid Level 2.7mmol/L (0.4-2.0) White Blood Count 15.2x10^3/uL (4.0-11.0) Red Blood Count 3.99x10^6/uL (4.30-5.70) Hemoglobin 11.7g/dL (13.0-17.5) Hematocrit 35.7% (39.0-53.0) Mean Corpuscular Volume 90fL (79-100) Mean Corpuscular Hemoglobin 29pg (25-35) Mean Corpuscular Hemoglobin Concent 33g/dL (31-37) Red Cell Distribution Width 14.8% (11.5-14.5) Platelet Count 269x10^3/uL (140-400) Neutrophils (%) (Auto) 94% (31-73) Lymphocytes (%) (Auto) 2% (24-48) Monocytes (%) (Auto) 4% (0-9) Eosinophils (%) (Auto) 0% (0-3) Basophils (%) (Auto) 0% (0-3) Neutrophils # (Auto) 14.3x10^3uL (1.8-7.7) Lymphocytes # (Auto) 0.3x10^3/uL (1.0-4.8) Monocytes # (Auto) 0.6x10^3/uL (0.0-1.1) Eosinophils # (Auto) 0.0x10^3/uL (0.0-0.7) Basophils # (Auto) 0.0x10^3/uL (0.0-0.2) Segmented Neutrophils % 88% (35-66) Band Neutrophils % 6% (0-9) Lymphocytes % 2% (24-48) Atypical Lymphocytes % (Manual) 1% (0-0) Monocytes % 3% (0-10) Platelet Estimate Adequate (ADEQUATE) Polychromasia Slight Basophilic Stippling Present Sodium Level 137mmol/L (136-145) Potassium Level 4.8mmol/L (3.5-5.1) Chloride Level 98mmol/L (98-107) Carbon Dioxide Level 33mmol/L (21-32) Anion Gap 6 (6-14) Blood Urea Nitrogen 14mg/dL (8-26) Creatinine 1.0mg/dL (0.7-1.3) Estimated GFR (Cockcroft-Gault) 83.2 Glucose Level 227mg/dL (70-99) Calcium Level 8.7mg/dL (8.5-10.1) Test 01/05/17 16:25 01/05/17 16:52 01/05/17 20:52 01/06/17 03:10 O2 Saturation 92% (92-99) Arterial Blood pH 7.35 (7.35-7.45) Arterial Blood pCO2 at Patient Temp 57mmHg (35-46) Arterial Blood pO2 at Patient Temp 65mmHg (75-108) Arterial Blood HCO3 31mmol/L (21-28) Arterial Blood Base Excess 4mmol/L (-3-3) FiO2 35 Glucose (Fingerstick) 271mg/dL (70-99) 232mg/dL (70-99) White Blood Count 14.9x10^3/uL (4.0-11.0) Red Blood Count 3.70x10^6/uL (4.30-5.70) Hemoglobin 10.8g/dL (13.0-17.5) Hematocrit 32.5% (39.0-53.0) Mean Corpuscular Volume 88fL (79-100) Mean Corpuscular Hemoglobin 29pg (25-35) Mean Corpuscular Hemoglobin Concent 33g/dL (31-37) Red Cell Distribution Width 14.7% (11.5-14.5) Platelet Count 286x10^3/uL (140-400) Neutrophils (%) (Auto) 91% (31-73) Lymphocytes (%) (Auto) 3% (24-48) Monocytes (%) (Auto) 5% (0-9) Eosinophils (%) (Auto) 0% (0-3) Basophils (%) (Auto) 0% (0-3) Neutrophils # (Auto) 13.6x10^3uL (1.8-7.7) Lymphocytes # (Auto) 0.5x10^3/uL (1.0-4.8) Monocytes # (Auto) 0.8x10^3/uL (0.0-1.1) Eosinophils # (Auto) 0.0x10^3/uL (0.0-0.7) Basophils # (Auto) 0.0x10^3/uL (0.0-0.2) Prothrombin Time 39.7SEC (11.7-14.0) Prothromb Time International Ratio 4.4 (0.8-1.1) Sodium Level 138mmol/L (136-145) Potassium Level 4.4mmol/L (3.5-5.1) Chloride Level 100mmol/L (98-107) Carbon Dioxide Level 35mmol/L (21-32) Anion Gap 3 (6-14) Blood Urea Nitrogen 13mg/dL (8-26) Creatinine 0.6mg/dL (0.7-1.3) Estimated GFR (Cockcroft-Gault) 150.0 Glucose Level 229mg/dL (70-99) Calcium Level 8.1mg/dL (8.5-10.1) Test 01/06/17 08:47 01/06/17 12:15 Glucose (Fingerstick) 178mg/dL (70-99) 326mg/dL (70-99) Laboratory Tests Test 01/05/17 13:30 01/05/17 13:40 01/05/17 13:50 01/05/17 16:25 O2 Saturation 96% (92-99) 92% (92-99) Arterial Blood pH 7.29 (7.35-7.45) 7.35 (7.35-7.45) Arterial Blood pCO2 at Patient Temp 66mmHg (35-46) 57mmHg (35-46) Arterial Blood pO2 at Patient Temp 91mmHg (75-108) 65mmHg (75-108) Arterial Blood HCO3 31mmol/L (21-28) 31mmol/L (21-28) Arterial Blood Base Excess 3mmol/L (-3-3) 4mmol/L (-3-3) FiO2 45 35 Lactic Acid Level 2.7mmol/L (0.4-2.0) White Blood Count 15.2x10^3/uL (4.0-11.0) Red Blood Count 3.99x10^6/uL (4.30-5.70) Hemoglobin 11.7g/dL (13.0-17.5) Hematocrit 35.7% (39.0-53.0) Mean Corpuscular Volume 90fL (79-100) Mean Corpuscular Hemoglobin 29pg (25-35) Mean Corpuscular Hemoglobin Concent 33g/dL (31-37) Red Cell Distribution Width 14.8% (11.5-14.5) Platelet Count 269x10^3/uL (140-400) Neutrophils (%) (Auto) 94% (31-73) Lymphocytes (%) (Auto) 2% (24-48) Monocytes (%) (Auto) 4% (0-9) Eosinophils (%) (Auto) 0% (0-3) Basophils (%) (Auto) 0% (0-3) Neutrophils # (Auto) 14.3x10^3uL (1.8-7.7) Lymphocytes # (Auto) 0.3x10^3/uL (1.0-4.8) Monocytes # (Auto) 0.6x10^3/uL (0.0-1.1) Eosinophils # (Auto) 0.0x10^3/uL (0.0-0.7) Basophils # (Auto) 0.0x10^3/uL (0.0-0.2) Segmented Neutrophils % 88% (35-66) Band Neutrophils % 6% (0-9) Lymphocytes % 2% (24-48) Atypical Lymphocytes % (Manual) 1% (0-0) Monocytes % 3% (0-10) Platelet Estimate Adequate (ADEQUATE) Polychromasia Slight Basophilic Stippling Present Sodium Level 137mmol/L (136-145) Potassium Level 4.8mmol/L (3.5-5.1) Chloride Level 98mmol/L (98-107) Carbon Dioxide Level 33mmol/L (21-32) Anion Gap 6 (6-14) Blood Urea Nitrogen 14mg/dL (8-26) Creatinine 1.0mg/dL (0.7-1.3) Estimated GFR (Cockcroft-Gault) 83.2 Glucose Level 227mg/dL (70-99) Calcium Level 8.7mg/dL (8.5-10.1) Test 01/05/17 16:52 01/05/17 20:52 01/06/17 03:10 01/06/17 08:47 Glucose (Fingerstick) 271mg/dL (70-99) 232mg/dL (70-99) 178mg/dL (70-99) White Blood Count 14.9x10^3/uL (4.0-11.0) Red Blood Count 3.70x10^6/uL (4.30-5.70) Hemoglobin 10.8g/dL (13.0-17.5) Hematocrit 32.5% (39.0-53.0) Mean Corpuscular Volume 88fL (79-100) Mean Corpuscular Hemoglobin 29pg (25-35) Mean Corpuscular Hemoglobin Concent 33g/dL (31-37) Red Cell Distribution Width 14.7% (11.5-14.5) Platelet Count 286x10^3/uL (140-400) Neutrophils (%) (Auto) 91% (31-73) Lymphocytes (%) (Auto) 3% (24-48) Monocytes (%) (Auto) 5% (0-9) Eosinophils (%) (Auto) 0% (0-3) Basophils (%) (Auto) 0% (0-3) Neutrophils # (Auto) 13.6x10^3uL (1.8-7.7) Lymphocytes # (Auto) 0.5x10^3/uL (1.0-4.8) Monocytes # (Auto) 0.8x10^3/uL (0.0-1.1) Eosinophils # (Auto) 0.0x10^3/uL (0.0-0.7) Basophils # (Auto) 0.0x10^3/uL (0.0-0.2) Prothrombin Time 39.7SEC (11.7-14.0) Prothromb Time International Ratio 4.4 (0.8-1.1) Sodium Level 138mmol/L (136-145) Potassium Level 4.4mmol/L (3.5-5.1) Chloride Level 100mmol/L (98-107) Carbon Dioxide Level 35mmol/L (21-32) Anion Gap 3 (6-14) Blood Urea Nitrogen 13mg/dL (8-26) Creatinine 0.6mg/dL (0.7-1.3) Estimated GFR (Cockcroft-Gault) 150.0 Glucose Level 229mg/dL (70-99) Calcium Level 8.1mg/dL (8.5-10.1) Test 01/06/17 12:15 Glucose (Fingerstick) 326mg/dL (70-99) Medications Current Medications Ondansetron HCl (Zofran) 4 mg PRN Q6HRS PRN IV NAUSEA/VOMITING; Start 01/05/17 at 13:00 Morphine Sulfate 2 mg PRN Q1HR PRN IV PAIN; Start 01/05/17 at 13:00 Acetaminophen/ Hydrocodone Bitart (Lortab 5/325) 1 tab PRN Q4HRS PRN PO MILD PAIN Last administered on 01/06/17 06:33; Start 01/05/17 at 13:00 Acetaminophen (Tylenol) 650 mg PRN Q6HRS PRN PO MILD PAIN / TEMP; Start at 13:00 Heparin Sodium (Porcine) 5,000 unit Q8HRS SQ Last administered on 01/06/17 05: 31; Start 01/05/17 at 14:00; Stop 01/06/17 at 07:45; Status DC Methylprednisolone Sodium Succinate 40 mg 40 mg Q8HRS IV Last administered on 05:30; Start 01/05/17 at 14:00 Vancomycin HCl/ Sodium Chloride (Iv Sodium Chloride 0.9% 500ml Bag) 500 ml @ 250 mls/hr Q12H IV ; Start 01/05/17 at 13:15; Status UNV Vancomycin HCl (Vanco Per Pharmacy) 1 each PRN DAILY PRN MC SEE COMMENTS Last administered on 01/05/17 16:21; Start 01/05/17 at 13:15; Stop 01/06/17 at 11:05; Status DC Pantoprazole Sodium 40 mg 40 mg DAILYAC PO Last administered on 01/06/17 10:35 ; Start 01/05/17 at 14:00 Piperacillin Sod/ Tazobactam Sod/ Sodium Chloride (Zosyn/Iv Sodium Chloride 0.9 % 100ml) 100 ml @ 200 mls/hr Q6HRS IV Last administered on 01/06/17 12:16; Start 01/05/17 at 14:00 Piperacillin Sod/ Tazobactam Sod (Zosyn Per Pharmacy) 1 each PRN DAILY PRN MC SEE COMMENTS; Start 01/05/17 at 13:15; Stop 01/06/17 at 08:34; Status DC Atorvastatin Calcium (Lipitor) 10 mg QHS PO Last administered on 01/05/17 20:52 ; Start 01/05/17 at 21:00 Calcium Carbonate/ Glycine (Tums) 400 mg PRN TID PRN PO HEARTBURN / GAS; Start 01/05/17 at 13:15 Diphenhydramine HCl (Benadryl) 25 mg TID PRN PRN PO ITCHING; Start 01/05/17 at 13:15 Furosemide (Lasix) 40 mg DAILY PO ; Start 01/05/17 at 14:00; Stop 01/05/17 at 14: 00; Status DC Metoprolol Tartrate (Lopressor) 50 mg BID PO Last administered on 01/06/17 10: 35; Start 01/05/17 at 14:00 Warfarin Sodium (Coumadin) 4 mg DAILY PO ; Start 01/06/17 at 09:00; Status UNV Albuterol Sulfate (Ventolin Neb Soln) 2.5 mg RTQID NEB ; Start 01/05/17 at 16:00 ; Stop 01/05/17 at 20:29; Status DC Nortriptyline HCl (Pamelor) 75 mg QHS PO Last administered on 01/05/17 20:53; Start 01/05/17 at 21:00 Warfarin Sodium (Coumadin Per Pharmacy) 1 each PRN DAILY PRN MC SEE COMMENTS Last administered on 01/06/17 11:09; Start 01/05/17 at 13:15 Insulin Detemir (Levemir) 20 units QHS SQ Last administered on 01/05/17 20:56; Start 01/05/17 at 21:00 Insulin Aspart (Novolog) 8 units TIDAC SQ Last administered on 01/05/17 17:34; Start 01/05/17 at 16:30; Stop 01/06/17 at 08:44; Status DC Insulin Aspart (Novolog) 0-9 UNITS TIDWMEALS SQ Last administered on 01/06/17 12:20; Start 01/05/17 at 17:00 Dextrose 12.5 gm 12.5 gm PRN Q15MIN PRN IV SEE COMMENTS; Start 01/05/17 at 13:15 Vancomycin HCl/ Sodium Chloride (Iv Sodium Chloride 0.9% 500ml Bag) 500 ml @ 250 mls/hr ONCE ONCE IV Last administered on 01/05/17 15:15; Start 01/05/17 at 14:00; Stop 01/05/17 at 15:59; Status DC Albuterol/ Ipratropium 3 ml 3 ml RTQID NEB Last administered on 01/06/17 11:49 ; Start 01/05/17 at 16:00 Levofloxacin/ Dextrose (LEVAQUIN 500mg PREMIX) 100 ml @ 100 mls/hr Q24H IV Last administered on 01/05/17 15:16; Start 01/05/17 at 14:00 Furosemide (Lasix) 20 mg 1X ONCE IVP Last administered on 01/05/17 15:11; Start 01/05/17 at 14:00; Stop 01/05/17 at 14:01; Status DC Methylprednisolone Sodium Succinate (Solu-Medrol 40mg Vial) 40 mg Q8HRS IV ; Start 01/05/17 at 14:00; Status UNV Furosemide (Lasix) 40 mg DAILY PO Last administered on 01/06/17 10:35; Start at 09:00 Warfarin Sodium (Coumadin - No Dose Today) 1 each 1X WARF ONCE MC Last administered on 01/05/17 16:00; Start 01/05/17 at 16:00; Stop 01/05/17 at 16:01; Status DC Budesonide (Pulmicort) 0.5 mg RTBID NEB Last administered on 01/06/17 07:55; Start 01/05/17 at 20:00 Iohexol (Omnipaque 300 Mg/ml) 75 ml 1X ONCE IV Last administered on 01/05/17 17:07; Start 01/05/17 at 14:45; Stop 01/05/17 at 14:46; Status DC Info (Do NOT chart on this entry -- for MONITORING) 1 each PRN DAILY PRN MC SEE COMMENTS; Start 01/05/17 at 15:00; Stop 01/07/17 at 14:59 Hydralazine HCl 10 mg 10 mg PRN Q4HRS PRN IVP ELEVATED BP, SEE COMMENTS; Start 01/05/17 at 15:30 Sodium Chloride 500 ml @ 500 mls/hr 1X ONCE IV Last administered on 01/05/17 11:30; Start 01/05/17 at 11:30; Stop 01/05/17 at 15:51; Status DC Vancomycin HCl/ Sodium Chloride (Iv Sodium Chloride 0.9% 500ml Bag) 500 ml @ 250 mls/hr Q8H IV Last administered on 01/06/17 06:29; Start 01/05/17 at 23:00; Stop 01/06/17 at 11:04; Status DC Vancomycin HCl 1 each 1X ONCE MC ; Start 01/06/17 at 14:30; Stop 01/06/17 at 14: 30; Status DC Insulin Aspart (Novolog) 12 units TIDAC SQ Last administered on 01/06/17 12:19 ; Start 01/06/17 at 11:30 Warfarin Sodium (Coumadin - No Dose Today) 1 each 1X WARF ONCE MC ; Start at 16:00; Stop 01/06/17 at 16:01 Active Scripts Active Reported Proair Respiclick (Albuterol Sulfate) 90 Mcg Aer.pow.ba 1 Puff IH TWICE WEEKLY PRN Ipratropium [place] 0.2 Mg/1 Ml Solution 1 Vial NEB BID Humulin R (Insulin Regular, Human) 100 Unit/1 Ml Vial 0 IJ Humulin R (Insulin Regular, Human) 100 Unit/1 Ml Vial 100 Unit IJ TIDAC Humulin N (Nph, Human Insulin Isophane) 100 Unit/1 Ml Vial 15 Unit SQ BID Albuterol Sulfate Conc Neb Soln (Albuterol Sulfate) 2.5 Mg/0.5 Ml Vial.neb 2.5 Mg NEB BID Warfarin Sodium 4 Mg Tablet 1 Tab PO DAILY Tums (Calcium Carbonate) 200 Mg Tab.chew 400 Mg PO TID PRN Nortriptyline Hcl 75 Mg Capsule 75 Mg PO HS Nortriptyline Hcl 50 Mg Capsule 50 Mg PO HS Metoprolol Tartrate 50 Mg Tablet 1 Tab PO BID Metformin Hcl 1,000 Mg Tablet 1 Tab PO BID Lasix (Furosemide) 40 Mg Tablet 1 Tab PO DAILY Benadryl (Diphenhydramine Hcl) 25 Mg Capsule 2 Cap PO TID PRN Atorvastatin Calcium 10 Mg Tablet 1 Tab PO DAILY [place] (Ciclesonide) 6.1 Gm Hfa.aer.ad 160 Mcg IH [id number] Vitals/I & O Vital Sign - Last 24 Hours 01/05/17 01/05/17 01/05/17 01/05/17 12:45 13:00 13:55 14:00 Pulse 122 136 122 Resp 24 24 24 B/P 149/86 135/66 159/91 Pulse Ox 96 98 94 O2 Delivery BiPAP/CPAP BiPAP/CPAP BiPAP/CPAP BiPAP/CPAP 01/05/17 01/05/17 01/05/17 01/05/17 15:00 15:14 15:30 16:00 Pulse 124 124 Resp 24 B/P 149/86 159/91 Pulse Ox 94 97 O2 Delivery BiPAP/CPAP BiPAP/CPAP Bi-pap 01/05/17 01/05/17 01/05/17 01/05/17 16:00 17:00 18:00 19:00 Temp 98.8 98.8 Pulse 120 122 118 116 Resp 24 24 20 22 B/P 138/94 145/94 158/86 132/67 Pulse Ox 94 94 93 94 O2 Delivery BiPAP/CPAP Venturi Mask Venturi Mask Venturi Mask 01/05/17 01/05/17 01/05/17 01/05/17 19:39 20:00 20:00 20:16 Temp 97.7 97.7 Pulse 111 Resp 22 20 B/P 124/74 Pulse Ox 95 93 92 O2 Delivery Venturi Mask Venturi Mask Venturi Mask Venturi Mask O2 Flow Rate 6.0 9.0 01/05/17 01/05/17 01/05/17 01/05/17 20:18 20:55 21:00 22:00 Pulse 112 112 107 Resp B/P 126/64 126/64 117/65 Pulse Ox 92 95 96 O2 Delivery Venturi Mask Venturi Mask Venturi Mask O2 Flow Rate 9.0 01/05/17 01/05/17 01/06/17 01/06/17 23:00 23:59 00:00 01:00 Temp 97.9 97.9 Pulse 99 97 108 Resp B/P 100/65 128/69 126/70 Pulse Ox 96 95 95 O2 Delivery Venturi Mask Venturi Mask Venturi Mask Venturi Mask 01/06/17 01/06/17 01/06/17 01/06/17 02:00 02:17 03:00 03:17 Pulse 97 94 Resp 24 B/P 119/70 132/74 Pulse Ox 95 97 96 96 O2 Delivery Venturi Mask Venturi Mask Venturi Mask Venturi Mask 01/06/17 01/06/17 01/06/17 01/06/17 04:00 04:00 05:00 06:00 Temp 97.7 97.7 Pulse 93 100 98 Resp B/P 126/71 126/71 132/73 Pulse Ox 96 94 96 O2 Delivery Venturi Mask Venturi Mask Venturi Mask Venturi Mask 01/06/17 01/06/17 01/06/17 01/06/17 06:33 07:55 08:00 08:00 Temp 98.9 98.9 Pulse 110 Resp B/P 121/91 Pulse Ox 97 98 96 O2 Delivery Venturi Mask Venturi Mask Nasal Cannula Nasal Cannula O2 Flow Rate 9.0 3.5 5.0 01/06/17 01/06/17 01/06/17 09:00 10:35 11:50 Pulse 112 116 Resp 24 B/P 144/68 144/73 Pulse Ox 94 96 O2 Delivery Nasal Cannula Nasal Cannula O2 Flow Rate 3.5 4.0 Intake and Output 01/05/17 01/05/17 01/06/17 15:00 23:00 07:00 Intake Total 1200 ml 940 ml Output Total 450 ml 1925 ml 800 ml Balance -450 ml -725 ml 140 ml STORMY ÁLVAREZ MD Jan 06, 2017 12:48
--- NOTE | 2017-01-06 18:25 | CARD ---
APPROVED REPORT EXAM: Two-dimensional and M-mode echocardiogram with Doppler and color Doppler. INDICATION Dyspnea 2D DIMENSIONS RVDd3.5 (2.9-3.5cm)Left Atrium(2D)3.0 (1.6-4.0cm) IVSd1.2 (0.7-1.1cm)Aortic Root(2D)3.2 (2.0-3.7cm) LVDd3.3 (3.9-5.9cm)LVOT Diameter2.3 (1.8-2.4cm) PWd1.3 (0.7-1.1cm)LVDs2.4 (2.5-4.0cm) FS (%) 25.4 %SV22.3 ml LVEF(%)51.3 (>50%) Aortic Valve AoV Peak Bakari.97.4cm/sAoV VTI14.7cm AO Peak GR.3.8mmHgAO Mean GR.2mmHg Mitral Valve MV E Vaualoto20.0cm/sMV E Peak Gr.2mmHg MV DECEL [id number] A Qlajgoyf26.6cm/s MV [id number]/A Ratio0.7 MV A [id number] (PHT)4.23cm2 TDI Lateral E' P. V12.83cm/sMedial E' P. V6.61cm/s E/Lateral E'4.2E/Medial E'8.2 Tricuspid Valve TR P. [id number]/sTR Peak Gr.71mmHg LEFT VENTRICLE The left ventricle is normal size. There is borderline to mild concentric left ventricular hypertroph y. Left ventricle systolic function is normal. The Ejection Fraction is 50-55%. There is a flattened D shaped septum consistent with right ventricle volume and pressure overload. Tissue Doppler imaging reveals mild left ventricular diastolic dysfunction. Transmitral Doppler flow pattern is Grade I-abno rmal relaxation pattern. RIGHT VENTRICLE The right ventricle is moderately to severely dilated. Systolic function is moderately reduced. ATRIA The left atrium size is normal. The right atrium is moderately dilated. The interatrial septum is int act with no evidence for an atrial septal defect or patent foramen ovale as noted on 2-D or Doppler i maging. AORTIC VALVE The aortic valve is normal in structure and function. The aortic valve is trileaflet. Doppler and Col or Flow revealed no significant aortic regurgitation. There is no significant aortic valvular stenosi s. MITRAL VALVE The mitral valve is normal in structure and function. There is no mitral valve stenosis. Doppler and Color Flow revealed mild mitral regurgitation. TRICUSPID VALVE The tricuspid valve is normal in structure. Doppler and Color Flow revealed moderate to severe tricus pid regurgitation. There is severe pulmonary hypertension. The PA pressure was estimated at 85 mmHg. There is no tricuspid valve stenosis. PULMONIC VALVE The pulmonary valve is normal in structure and function. Doppler and Color Flow revealed mild pulmoni c valvular regurgitation. There is no pulmonic valvular stenosis. GREAT VESSELS The aortic root is normal in size. Pulmonary veins not recorded. The IVC is dilated and collapses <50 % with inspiration. PERICARDIAL EFFUSION There is no evidence of significant pericardial effusion. Critical Notification Date: 01/05/2017 Time: 15:00 Other Discipline : AIXA Caraballo Critical Value: Yes <Conclusion> The left ventricle is normal size. Left ventricle systolic function is normal. The Ejection Fraction is 50-55%. There is a flattened D shaped septum consistent with right ventricle volume and pressure overload. There is borderline to mild concentric left ventricular hypertrophy. The right ventricle is moderately to severely dilated. RV systolic function is moderately reduced. The right atrium is moderately dilated. There is no significant aortic valvular stenosis. Doppler and Color Flow revealed no significant aortic regurgitation. Doppler and Color Flow revealed mild mitral regurgitation. Doppler and Color Flow revealed moderate to severe tricuspid regurgitation. There is severe pulmonary hypertension. The PA pressure was estimated at 85 mmHg.
[2017-01-06] MEDS: ATORVASTATIN CALCIUM 10 MG TABLET. PO SCH (20:41)
[2017-01-06] MEDS: INSULIN DETEMIR 300 UNITS/3 ML INSULN.PEN. SQ SCH (20:55)
[2017-01-06] MEDS: NORTRIPTYLINE 25 MG CAPSULE PO SCH (20:58)
[2017-01-06] MEDS: DIPHENHYDRAMINE HCL 25 MG CAPSULE PO PRN (20:58)
[2017-01-06] MEDS ORDERED: NORTRIPTYLINE 25 MG CAPSULE PO SCH (21:00)
[2017-01-07 03:00] VITALS: BP 126/89
[2017-01-07] MEDS: HYDROCODONE/APAP 5/325MG TABLET. PO PRN ×3 (04:41→19:25)
[2017-01-07 05:17] LABS: BASO % 0 % (0-3); EOS % 0 % (0-3); HEMATOCRIT 33.3 % (39.0-53.0); HEMOGLOBIN 10.8 g/dL (13.0-17.5); LYMPH # 0.6 x10^3/uL (1.0-4.8); LYMPH % 3 % (24-48); MEAN CORPUSCULAR HEMOGLOBIN 29 pg (25-35); MEAN CORPUSCULAR HGB CONC 32 g/dL (31-37); MEAN CORPUSCULAR VOLUME 90 fL (79-100); MONO % 6 % (0-9); NEUT % 91 % (31-73); PLATELET COUNT 348 x10^3/uL (140-400); RED BLOOD COUNT 3.69 x10^6/uL (4.30-5.70); RED CELL DISTRIBUTION WIDTH 14.5 % (11.5-14.5); WHITE BLOOD COUNT 18.7 x10^3/uL (4.0-11.0)
[2017-01-07 05:27] LABS: PROTHROMBIN TIME PATIENT 29.2 SEC (11.7-14.0)
[2017-01-07 05:39] LABS: ALBUMIN 2.6 g/dL (3.4-5.0); ALBUMIN/GLOBULIN RATIO 0.7 (1.0-1.7); CALCIUM 8.2 mg/dL (8.5-10.1); CREATININE 0.6 mg/dL (0.7-1.3); POTASSIUM 4.6 mmol/L (3.5-5.1); TOTAL BILIRUBIN 0.3 mg/dL (0.2-1.0); TOTAL PROTEIN 6.6 g/dL (6.4-8.2)
[2017-01-07] MEDS: methylPREDNISolone SOD SUCC PF 40 MG/ML VIAL. IV SCH ×3 (06:00→20:32)
[2017-01-07] MEDS: PIPERACILLIN/TAZOBACTAM 4.5 GM in IV NORMAL SALINE 100ML 100 ML IV SCH ×4 (06:00→23:12)
[2017-01-07] MEDS: BUDESONIDE 0.5 MG/2 ML NEBU NEB SCH ×2 (06:55→21:07)
[2017-01-07] MEDS: IPRATRPIUM/ALBUTEROL 0.5/2.5MG 3 ML NEBU. NEB SCH ×4 (06:57→21:07)
[2017-01-07 07:00] VITALS: BP 138/94
[2017-01-07] MEDS: INSULIN ASPART 300 UNITS/3 ML INSULN.PEN SQ SCH ×6 (07:30→17:16)
[2017-01-07] MEDS ORDERED: INSULIN ASPART 300 UNITS/3 ML INSULN.PEN SQ ONE (08:15)
[2017-01-07] MEDS: PANTOPRAZOLE 40 MG TABLET. PO SCH (08:17)
[2017-01-07] MEDS: METOPROLOL TART IMMED RELEASE 50 MG TABLET PO SCH ×2 (08:18→20:31)
[2017-01-07] MEDS: FUROSEMIDE 40 MG TABLET PO SCH (08:18)
[2017-01-07] MEDS ORDERED: INSULIN DETEMIR 300 UNITS/3 ML INSULN.PEN. SQ STA (08:22)
--- NOTE | 2017-01-07 10:42 | PDOC ---
PROGRESS NOTES Chief Complaint Chief Complaint 1. acute hypoxic and hypercapnic resp failure 2. h/o sarcoidosis 3. h/o PE on coumadin 4. HAP 5. obesity, BMI 37 6. DM2 7. HTN 8. SIRS, sepsis, pneumonia History of Present Illness History of Present Illness t/o ICU 01/06/17 Needing BIPAP there SOA after short walks INcarcerated - minimum security - no guards at bedside Bec of SOA, can ambulate with wheelchair at times BS high - on high dose steroids for the sarcoid HAs had sarcoidosis since 2000 INR 3 today (from, 4 plus yesterday) PLAN: iNC NOVOLOG TO 15 Tid inc levemir to 30 qhs Add pT/OT WArf per pahramcy INR goal 2-3 Vitals Vitals Vital Signs Date Time Temp Pulse Resp B/P Pulse Ox O2 Delivery O2 Flow Rate FiO2 01/07/17 08:18 102 138/94 01/07/17 08:00 Nasal Cannula 4.0 01/07/17 07:00 97.8 24 95 97.8 Physical Exam General: Alert, Oriented X3, Cooperative, mild distress, moderate distress Heart: Regular rate, No murmurs Lungs: Other (decrease bs, w. rales, no wheeze) Abdomen: Normal bowel sounds, Soft Extremities: No clubbing, No cyanosis, No edema Skin: No rashes, No breakdown Labs LABS Laboratory Tests Test 01/06/17 12:15 01/06/17 17:19 01/06/17 20:51 01/07/17 04:15 Glucose (Fingerstick) 326mg/dL (70-99) 246mg/dL (70-99) 273mg/dL (70-99) White Blood Count 18.7x10^3/uL (4.0-11.0) Red Blood Count 3.69x10^6/uL (4.30-5.70) Hemoglobin 10.8g/dL (13.0-17.5) Hematocrit 33.3% (39.0-53.0) Mean Corpuscular Volume 90fL (79-100) Mean Corpuscular Hemoglobin 29pg (25-35) Mean Corpuscular Hemoglobin Concent 32g/dL (31-37) Red Cell Distribution Width 14.5% (11.5-14.5) Platelet Count 348x10^3/uL (140-400) Neutrophils (%) (Auto) 91% (31-73) Lymphocytes (%) (Auto) 3% (24-48) Monocytes (%) (Auto) 6% (0-9) Eosinophils (%) (Auto) 0% (0-3) Basophils (%) (Auto) 0% (0-3) Neutrophils # (Auto) 17.0x10^3uL (1.8-7.7) Lymphocytes # (Auto) 0.6x10^3/uL (1.0-4.8) Monocytes # (Auto) 1.1x10^3/uL (0.0-1.1) Eosinophils # (Auto) 0.0x10^3/uL (0.0-0.7) Basophils # (Auto) 0.0x10^3/uL (0.0-0.2) Prothrombin Time 29.2SEC (11.7-14.0) Prothromb Time International Ratio 3.0 (0.8-1.1) Sodium Level 139mmol/L (136-145) Potassium Level 4.6mmol/L (3.5-5.1) Chloride Level 99mmol/L (98-107) Carbon Dioxide Level 37mmol/L (21-32) Anion Gap 3 (6-14) Blood Urea Nitrogen 18mg/dL (8-26) Creatinine 0.6mg/dL (0.7-1.3) Estimated GFR (Cockcroft-Gault) 150.0 BUN/Creatinine Ratio 30 (6-20) Glucose Level 268mg/dL (70-99) Calcium Level 8.2mg/dL (8.5-10.1) Total Bilirubin 0.3mg/dL (0.2-1.0) Aspartate Amino Transf (AST/SGOT) 13U/L (15-37) Alanine Aminotransferase (ALT/SGPT) 29U/L (16-63) Alkaline Phosphatase 45U/L (46-116) Total Protein 6.6g/dL (6.4-8.2) Albumin 2.6g/dL (3.4-5.0) Albumin/Globulin Ratio 0.7 (1.0-1.7) Test 01/07/17 07:15 Glucose (Fingerstick) 274mg/dL (70-99) Review of Systems Review of Systems SOA, weak but no cp, no cough Assessment and Plan Assessmemt and Plan Problems Medical Problems: (1) Respiratory failure Status: Acute Problems: Comment Review of Relevant I have reviewed the following items radha (where applicable) has been applied. Labs Laboratory Tests Test 01/05/17 12:17 01/05/17 13:30 01/05/17 13:40 01/05/17 13:50 Nasal Screen MRSA (PCR) Negative (Negative) O2 Saturation 96% (92-99) Arterial Blood pH 7.29 (7.35-7.45) Arterial Blood pCO2 at Patient Temp 66mmHg (35-46) Arterial Blood pO2 at Patient Temp 91mmHg (75-108) Arterial Blood HCO3 31mmol/L (21-28) Arterial Blood Base Excess 3mmol/L (-3-3) FiO2 45 Lactic Acid Level 2.7mmol/L (0.4-2.0) White Blood Count 15.2x10^3/uL (4.0-11.0) Red Blood Count 3.99x10^6/uL (4.30-5.70) Hemoglobin 11.7g/dL (13.0-17.5) Hematocrit 35.7% (39.0-53.0) Mean Corpuscular Volume 90fL (79-100) Mean Corpuscular Hemoglobin 29pg (25-35) Mean Corpuscular Hemoglobin Concent 33g/dL (31-37) Red Cell Distribution Width 14.8% (11.5-14.5) Platelet Count 269x10^3/uL (140-400) Neutrophils (%) (Auto) 94% (31-73) Lymphocytes (%) (Auto) 2% (24-48) Monocytes (%) (Auto) 4% (0-9) Eosinophils (%) (Auto) 0% (0-3) Basophils (%) (Auto) 0% (0-3) Neutrophils # (Auto) 14.3x10^3uL (1.8-7.7) Lymphocytes # (Auto) 0.3x10^3/uL (1.0-4.8) Monocytes # (Auto) 0.6x10^3/uL (0.0-1.1) Eosinophils # (Auto) 0.0x10^3/uL (0.0-0.7) Basophils # (Auto) 0.0x10^3/uL (0.0-0.2) Segmented Neutrophils % 88% (35-66) Band Neutrophils % 6% (0-9) Lymphocytes % 2% (24-48) Atypical Lymphocytes % (Manual) 1% (0-0) Monocytes % 3% (0-10) Platelet Estimate Adequate (ADEQUATE) Polychromasia Slight Basophilic Stippling Present Sodium Level 137mmol/L (136-145) Potassium Level 4.8mmol/L (3.5-5.1) Chloride Level 98mmol/L (98-107) Carbon Dioxide Level 33mmol/L (21-32) Anion Gap 6 (6-14) Blood Urea Nitrogen 14mg/dL (8-26) Creatinine 1.0mg/dL (0.7-1.3) Estimated GFR (Cockcroft-Gault) 83.2 Glucose Level 227mg/dL (70-99) Calcium Level 8.7mg/dL (8.5-10.1) Test 01/05/17 16:25 01/05/17 16:52 01/05/17 20:52 01/06/17 03:10 O2 Saturation 92% (92-99) Arterial Blood pH 7.35 (7.35-7.45) Arterial Blood pCO2 at Patient Temp 57mmHg (35-46) Arterial Blood pO2 at Patient Temp 65mmHg (75-108) Arterial Blood HCO3 31mmol/L (21-28) Arterial Blood Base Excess 4mmol/L (-3-3) FiO2 35 Glucose (Fingerstick) 271mg/dL (70-99) 232mg/dL (70-99) White Blood Count 14.9x10^3/uL (4.0-11.0) Red Blood Count 3.70x10^6/uL (4.30-5.70) Hemoglobin 10.8g/dL (13.0-17.5) Hematocrit 32.5% (39.0-53.0) Mean Corpuscular Volume 88fL (79-100) Mean Corpuscular Hemoglobin 29pg (25-35) Mean Corpuscular Hemoglobin Concent 33g/dL (31-37) Red Cell Distribution Width 14.7% (11.5-14.5) Platelet Count 286x10^3/uL (140-400) Neutrophils (%) (Auto) 91% (31-73) Lymphocytes (%) (Auto) 3% (24-48) Monocytes (%) (Auto) 5% (0-9) Eosinophils (%) (Auto) 0% (0-3) Basophils (%) (Auto) 0% (0-3) Neutrophils # (Auto) 13.6x10^3uL (1.8-7.7) Lymphocytes # (Auto) 0.5x10^3/uL (1.0-4.8) Monocytes # (Auto) 0.8x10^3/uL (0.0-1.1) Eosinophils # (Auto) 0.0x10^3/uL (0.0-0.7) Basophils # (Auto) 0.0x10^3/uL (0.0-0.2) Prothrombin Time 39.7SEC (11.7-14.0) Prothromb Time International Ratio 4.4 (0.8-1.1) Sodium Level 138mmol/L (136-145) Potassium Level 4.4mmol/L (3.5-5.1) Chloride Level 100mmol/L (98-107) Carbon Dioxide Level 35mmol/L (21-32) Anion Gap 3 (6-14) Blood Urea Nitrogen 13mg/dL (8-26) Creatinine 0.6mg/dL (0.7-1.3) Estimated GFR (Cockcroft-Gault) 150.0 Glucose Level 229mg/dL (70-99) Calcium Level 8.1mg/dL (8.5-10.1) Test 01/06/17 08:47 01/06/17 12:15 01/06/17 17:19 01/06/17 20:51 Glucose (Fingerstick) 178mg/dL (70-99) 326mg/dL (70-99) 246mg/dL (70-99) 273mg/dL (70-99) Test 01/07/17 04:15 01/07/17 07:15 White Blood Count 18.7x10^3/uL (4.0-11.0) Red Blood Count 3.69x10^6/uL (4.30-5.70) Hemoglobin 10.8g/dL (13.0-17.5) Hematocrit 33.3% (39.0-53.0) Mean Corpuscular Volume 90fL (79-100) Mean Corpuscular Hemoglobin 29pg (25-35) Mean Corpuscular Hemoglobin Concent 32g/dL (31-37) Red Cell Distribution Width 14.5% (11.5-14.5) Platelet Count 348x10^3/uL (140-400) Neutrophils (%) (Auto) 91% (31-73) Lymphocytes (%) (Auto) 3% (24-48) Monocytes (%) (Auto) 6% (0-9) Eosinophils (%) (Auto) 0% (0-3) Basophils (%) (Auto) 0% (0-3) Neutrophils # (Auto) 17.0x10^3uL (1.8-7.7) Lymphocytes # (Auto) 0.6x10^3/uL (1.0-4.8) Monocytes # (Auto) 1.1x10^3/uL (0.0-1.1) Eosinophils # (Auto) 0.0x10^3/uL (0.0-0.7) Basophils # (Auto) 0.0x10^3/uL (0.0-0.2) Prothrombin Time 29.2SEC (11.7-14.0) Prothromb Time International Ratio 3.0 (0.8-1.1) Sodium Level 139mmol/L (136-145) Potassium Level 4.6mmol/L (3.5-5.1) Chloride Level 99mmol/L (98-107) Carbon Dioxide Level 37mmol/L (21-32) Anion Gap 3 (6-14) Blood Urea Nitrogen 18mg/dL (8-26) Creatinine 0.6mg/dL (0.7-1.3) Estimated GFR (Cockcroft-Gault) 150.0 BUN/Creatinine Ratio 30 (6-20) Glucose Level 268mg/dL (70-99) Calcium Level 8.2mg/dL (8.5-10.1) Total Bilirubin 0.3mg/dL (0.2-1.0) Aspartate Amino Transf (AST/SGOT) 13U/L (15-37) Alanine Aminotransferase (ALT/SGPT) 29U/L (16-63) Alkaline Phosphatase 45U/L (46-116) Total Protein 6.6g/dL (6.4-8.2) Albumin 2.6g/dL (3.4-5.0) Albumin/Globulin Ratio 0.7 (1.0-1.7) Glucose (Fingerstick) 274mg/dL (70-99) Laboratory Tests Test 01/06/17 12:15 01/06/17 17:19 01/06/17 20:51 01/07/17 04:15 Glucose (Fingerstick) 326mg/dL (70-99) 246mg/dL (70-99) 273mg/dL (70-99) White Blood Count 18.7x10^3/uL (4.0-11.0) Red Blood Count 3.69x10^6/uL (4.30-5.70) Hemoglobin 10.8g/dL (13.0-17.5) Hematocrit 33.3% (39.0-53.0) Mean Corpuscular Volume 90fL (79-100) Mean Corpuscular Hemoglobin 29pg (25-35) Mean Corpuscular Hemoglobin Concent 32g/dL (31-37) Red Cell Distribution Width 14.5% (11.5-14.5) Platelet Count 348x10^3/uL (140-400) Neutrophils (%) (Auto) 91% (31-73) Lymphocytes (%) (Auto) 3% (24-48) Monocytes (%) (Auto) 6% (0-9) Eosinophils (%) (Auto) 0% (0-3) Basophils (%) (Auto) 0% (0-3) Neutrophils # (Auto) 17.0x10^3uL (1.8-7.7) Lymphocytes # (Auto) 0.6x10^3/uL (1.0-4.8) Monocytes # (Auto) 1.1x10^3/uL (0.0-1.1) Eosinophils # (Auto) 0.0x10^3/uL (0.0-0.7) Basophils # (Auto) 0.0x10^3/uL (0.0-0.2) Prothrombin Time 29.2SEC (11.7-14.0) Prothromb Time International Ratio 3.0 (0.8-1.1) Sodium Level 139mmol/L (136-145) Potassium Level 4.6mmol/L (3.5-5.1) Chloride Level 99mmol/L (98-107) Carbon Dioxide Level 37mmol/L (21-32) Anion Gap 3 (6-14) Blood Urea Nitrogen 18mg/dL (8-26) Creatinine 0.6mg/dL (0.7-1.3) Estimated GFR (Cockcroft-Gault) 150.0 BUN/Creatinine Ratio 30 (6-20) Glucose Level 268mg/dL (70-99) Calcium Level 8.2mg/dL (8.5-10.1) Total Bilirubin 0.3mg/dL (0.2-1.0) Aspartate Amino Transf (AST/SGOT) 13U/L (15-37) Alanine Aminotransferase (ALT/SGPT) 29U/L (16-63) Alkaline Phosphatase 45U/L (46-116) Total Protein 6.6g/dL (6.4-8.2) Albumin 2.6g/dL (3.4-5.0) Albumin/Globulin Ratio 0.7 (1.0-1.7) Test 01/07/17 07:15 Glucose (Fingerstick) 274mg/dL (70-99) Medications Current Medications Ondansetron HCl (Zofran) 4 mg PRN Q6HRS PRN IV NAUSEA/VOMITING; Start 01/05/17 at 13:00 Morphine Sulfate 2 mg PRN Q1HR PRN IV PAIN; Start 01/05/17 at 13:00 Acetaminophen/ Hydrocodone Bitart (Lortab 5/325) 1 tab PRN Q4HRS PRN PO MILD PAIN Last administered on 01/07/17 04:41; Start 01/05/17 at 13:00 Acetaminophen (Tylenol) 650 mg PRN Q6HRS PRN PO MILD PAIN / TEMP; Start at 13:00 Heparin Sodium (Porcine) 5,000 unit Q8HRS SQ Last administered on 01/06/17 05: 31; Start 01/05/17 at 14:00; Stop 01/06/17 at 07:45; Status DC Methylprednisolone Sodium Succinate 40 mg 40 mg Q8HRS IV Last administered on 06:00; Start 01/05/17 at 14:00 Vancomycin HCl/ Sodium Chloride (Iv Sodium Chloride 0.9% 500ml Bag) 500 ml @ 250 mls/hr Q12H IV ; Start 01/05/17 at 13:15; Status UNV Vancomycin HCl (Vanco Per Pharmacy) 1 each PRN DAILY PRN MC SEE COMMENTS Last administered on 01/05/17 16:21; Start 01/05/17 at 13:15; Stop 01/06/17 at 11:05; Status DC Pantoprazole Sodium 40 mg 40 mg DAILYAC PO Last administered on 01/07/17 08:17 ; Start 01/05/17 at 14:00 Piperacillin Sod/ Tazobactam Sod/ Sodium Chloride (Zosyn/Iv Sodium Chloride 0.9 % 100ml) 100 ml @ 200 mls/hr Q6HRS IV Last administered on 01/07/17 06:00; Start 01/05/17 at 14:00 Piperacillin Sod/ Tazobactam Sod (Zosyn Per Pharmacy) 1 each PRN DAILY PRN MC SEE COMMENTS; Start 01/05/17 at 13:15; Stop 01/06/17 at 08:34; Status DC Atorvastatin Calcium (Lipitor) 10 mg QHS PO Last administered on 01/06/17 20:41 ; Start 01/05/17 at 21:00 Calcium Carbonate/ Glycine (Tums) 400 mg PRN TID PRN PO HEARTBURN / GAS; Start 01/05/17 at 13:15 Diphenhydramine HCl (Benadryl) 25 mg TID PRN PRN PO ITCHING Last administered on 01/06/17 20:58; Start 01/05/17 at 13:15 Furosemide (Lasix) 40 mg DAILY PO ; Start 01/05/17 at 14:00; Stop 01/05/17 at 14: 00; Status DC Metoprolol Tartrate (Lopressor) 50 mg BID PO Last administered on 01/07/17 08: 18; Start 01/05/17 at 14:00 Warfarin Sodium (Coumadin) 4 mg DAILY PO ; Start 01/06/17 at 09:00; Status UNV Albuterol Sulfate (Ventolin Neb Soln) 2.5 mg RTQID NEB ; Start 01/05/17 at 16:00 ; Stop 01/05/17 at 20:29; Status DC Nortriptyline HCl (Pamelor) 75 mg QHS PO Last administered on 01/06/17 20:58; Start 01/05/17 at 21:00 Warfarin Sodium (Coumadin Per Pharmacy) 1 each PRN DAILY PRN MC SEE COMMENTS Last administered on 01/06/17 11:09; Start 01/05/17 at 13:15 Insulin Detemir (Levemir) 20 units QHS SQ Last administered on 01/06/17 20:55; Start 01/05/17 at 21:00; Stop 01/07/17 at 08:22; Status DC Insulin Aspart (Novolog) 8 units TIDAC SQ Last administered on 01/05/17 17:34; Start 01/05/17 at 16:30; Stop 01/06/17 at 08:44; Status DC Insulin Aspart (Novolog) 0-9 UNITS TIDWMEALS SQ Last administered on 01/07/17 08:26; Start 01/05/17 at 17:00 Dextrose 12.5 gm 12.5 gm PRN Q15MIN PRN IV SEE COMMENTS; Start 01/05/17 at 13:15 Vancomycin HCl/ Sodium Chloride (Iv Sodium Chloride 0.9% 500ml Bag) 500 ml @ 250 mls/hr ONCE ONCE IV Last administered on 01/05/17 15:15; Start 01/05/17 at 14:00; Stop 01/05/17 at 15:59; Status DC Albuterol/ Ipratropium 3 ml 3 ml RTQID NEB Last administered on 01/07/17 06:57 ; Start 01/05/17 at 16:00 Levofloxacin/ Dextrose (LEVAQUIN 500mg PREMIX) 100 ml @ 100 mls/hr Q24H IV Last administered on 01/06/17 14:00; Start 01/05/17 at 14:00 Furosemide (Lasix) 20 mg 1X ONCE IVP Last administered on 01/05/17 15:11; Start 01/05/17 at 14:00; Stop 01/05/17 at 14:01; Status DC Methylprednisolone Sodium Succinate (Solu-Medrol 40mg Vial) 40 mg Q8HRS IV ; Start 01/05/17 at 14:00; Status UNV Furosemide (Lasix) 40 mg DAILY PO Last administered on 01/07/17 08:18; Start 01/06/17 at 09:00 Warfarin Sodium (Coumadin - No Dose Today) 1 each 1X WARF ONCE MC Last administered on 01/05/17 16:00; Start 01/05/17 at 16:00; Stop 01/05/17 at 16:01; Status DC Budesonide (Pulmicort) 0.5 mg RTBID NEB Last administered on 01/07/17 06:55; Start 01/05/17 at 20:00 Iohexol (Omnipaque 300 Mg/ml) 75 ml 1X ONCE IV Last administered on 01/05/17 17:07; Start 01/05/17 at 14:45; Stop 01/05/17 at 14:46; Status DC Info (Do NOT chart on this entry -- for MONITORING) 1 each PRN DAILY PRN MC SEE COMMENTS; Start 01/05/17 at 15:00; Stop 01/07/17 at 14:59 Hydralazine HCl 10 mg 10 mg PRN Q4HRS PRN IVP ELEVATED BP, SEE COMMENTS; Start 01/05/17 at 15:30 Sodium Chloride 500 ml @ 500 mls/hr 1X ONCE IV Last administered on 01/05/17 11:30; Start 01/05/17 at 11:30; Stop 01/05/17 at 15:51; Status DC Vancomycin HCl/ Sodium Chloride (Iv Sodium Chloride 0.9% 500ml Bag) 500 ml @ 250 mls/hr Q8H IV Last administered on 01/06/17 06:29; Start 01/05/17 at 23:00; Stop 01/06/17 at 11:04; Status DC Vancomycin HCl 1 each 1X ONCE MC ; Start 01/06/17 at 14:30; Stop 01/06/17 at 14: 30; Status DC Insulin Aspart (Novolog) 12 units TIDAC SQ Last administered on 01/06/17 17:49 ; Start 01/06/17 at 11:30; Stop 01/07/17 at 08:22; Status DC Warfarin Sodium (Coumadin - No Dose Today) 1 each 1X WARF ONCE MC ; Start at 16:00; Stop 01/06/17 at 16:01; Status DC Nortriptyline HCl (Pamelor) 50 mg QHS PO Last administered on 01/06/17 20:59; Start 01/06/17 at 21:00 Insulin Aspart (Novolog) 15 units TIDAC SQ ; Start 01/07/17 at 11:30 Insulin Detemir (Levemir) 30 units QHS SQ ; Start 01/07/17 at 21:00 Insulin Detemir (Levemir) 10 units ONCE STAT SQ Last administered on 09:17; Start 01/07/17 at 08:22; Stop 01/07/17 at 08:23; Status DC Active Scripts Active Reported Proair Respiclick (Albuterol Sulfate) 90 Mcg Aer.pow.ba 1 Puff IH TWICE WEEKLY PRN Ipratropium [place] 0.2 Mg/1 Ml Solution 1 Vial NEB BID Humulin R (Insulin Regular, Human) 100 Unit/1 Ml Vial 0 IJ Humulin R (Insulin Regular, Human) 100 Unit/1 Ml Vial 100 Unit IJ TIDAC Humulin N (Nph, Human Insulin Isophane) 100 Unit/1 Ml Vial 15 Unit SQ BID Albuterol Sulfate Conc Neb Soln (Albuterol Sulfate) 2.5 Mg/0.5 Ml Vial.neb 2.5 Mg NEB BID Warfarin Sodium 4 Mg Tablet 1 Tab PO DAILY Tums (Calcium Carbonate) 200 Mg Tab.chew 400 Mg PO TID PRN Nortriptyline Hcl 75 Mg Capsule 75 Mg PO HS Nortriptyline Hcl 50 Mg Capsule 50 Mg PO HS Metoprolol Tartrate 50 Mg Tablet 1 Tab PO BID Metformin Hcl 1,000 Mg Tablet 1 Tab PO BID Lasix (Furosemide) 40 Mg Tablet 1 Tab PO DAILY Benadryl (Diphenhydramine Hcl) 25 Mg Capsule 2 Cap PO TID PRN Atorvastatin Calcium 10 Mg Tablet 1 Tab PO DAILY [place] (Ciclesonide) 6.1 Gm Hfa.aer.ad 160 Mcg IH [id number] Vitals/I & O Vital Sign - Last 24 Hours 01/06/17 01/06/17 01/06/17 01/06/17 11:50 12:00 14:00 15:00 Temp 98.9 98.9 Pulse 104 Resp 24 B/P 125/74 Pulse Ox 96 96 96 96 O2 Delivery Nasal Cannula Nasal Cannula Nasal Cannula O2 Flow Rate 4.0 3.5 3.5 01/06/17 01/06/17 01/06/17 01/06/17 15:37 16:00 18:49 19:38 Temp 98.7 98.7 98.7 98.7 Pulse 102 123 Resp B/P 119/66 114/77 Pulse Ox 98 96 90 O2 Delivery Nasal Cannula Nasal Cannula Nasal Cannula Nasal Cannula O2 Flow Rate 3.0 3.5 4.0 4.0 01/06/17 01/06/17 01/06/17 01/06/17 20:00 20:43 21:20 21:21 Pulse 116 B/P 149/86 Pulse Ox 95 95 O2 Delivery Nasal Cannula Nasal Cannula Nasal Cannula O2 Flow Rate 5.0 5.0 5.0 01/06/17 01/07/17 01/07/17 01/07/17 23:00 03:00 04:41 05:40 Temp 97.7 96.4 97.7 96.4 Pulse 111 105 Resp 18 B/P 121/89 126/89 O2 Delivery Nasal Cannula Nasal Cannula Nasal Cannula Nasal Cannula O2 Flow Rate 4.0 4.0 4.0 4.0 01/07/17 01/07/17 01/07/17 01/07/17 06:57 07:00 08:00 08:18 Temp 97.8 97.8 Pulse 102 102 Resp 24 B/P 138/94 138/94 Pulse Ox 94 95 O2 Delivery Nasal Cannula Nasal Cannula Nasal Cannula O2 Flow Rate 5.0 4.0 4.0 Intake and Output 01/06/17 01/06/17 01/07/17 15:00 23:00 07:00 Intake Total 240 ml 600 ml Output Total 450 ml 2000 ml Balance -210 ml -1400 ml ROZINA TOVAR MD Jan 07, 2017 10:42
[2017-01-07 11:00] VITALS: BP 120/87
--- NOTE | 2017-01-07 13:11 | PDOC ---
PULMONARY PROGRESS NOTES Subjective feels better,off BIPAP Vitals Vital Signs Date Time Temp Pulse Resp B/P Pulse Ox O2 Delivery O2 Flow Rate FiO2 01/07/17 11:54 Nasal Cannula 5.0 01/07/17 11:00 97.9 87 24 120/87 96 97.9 General: Alert, No acute distress Lungs: Other (decrease bs, w. rales, no wheeze) Cardiovascular: S1 Abdomen: Soft Neuro Exam: Alert Extremities: Other (1+edema) Labs Laboratory Tests Test 01/05/17 13:30 01/05/17 13:40 01/05/17 13:50 01/05/17 16:25 O2 Saturation 96% (92-99) 92% (92-99) Arterial Blood pH 7.29 (7.35-7.45) 7.35 (7.35-7.45) Arterial Blood pCO2 at Patient Temp 66mmHg (35-46) 57mmHg (35-46) Arterial Blood pO2 at Patient Temp 91mmHg (75-108) 65mmHg (75-108) Arterial Blood HCO3 31mmol/L (21-28) 31mmol/L (21-28) Arterial Blood Base Excess 3mmol/L (-3-3) 4mmol/L (-3-3) FiO2 45 35 Lactic Acid Level 2.7mmol/L (0.4-2.0) White Blood Count 15.2x10^3/uL (4.0-11.0) Red Blood Count 3.99x10^6/uL (4.30-5.70) Hemoglobin 11.7g/dL (13.0-17.5) Hematocrit 35.7% (39.0-53.0) Mean Corpuscular Volume 90fL (79-100) Mean Corpuscular Hemoglobin 29pg (25-35) Mean Corpuscular Hemoglobin Concent 33g/dL (31-37) Red Cell Distribution Width 14.8% (11.5-14.5) Platelet Count 269x10^3/uL (140-400) Neutrophils (%) (Auto) 94% (31-73) Lymphocytes (%) (Auto) 2% (24-48) Monocytes (%) (Auto) 4% (0-9) Eosinophils (%) (Auto) 0% (0-3) Basophils (%) (Auto) 0% (0-3) Neutrophils # (Auto) 14.3x10^3uL (1.8-7.7) Lymphocytes # (Auto) 0.3x10^3/uL (1.0-4.8) Monocytes # (Auto) 0.6x10^3/uL (0.0-1.1) Eosinophils # (Auto) 0.0x10^3/uL (0.0-0.7) Basophils # (Auto) 0.0x10^3/uL (0.0-0.2) Segmented Neutrophils % 88% (35-66) Band Neutrophils % 6% (0-9) Lymphocytes % 2% (24-48) Atypical Lymphocytes % (Manual) 1% (0-0) Monocytes % 3% (0-10) Platelet Estimate Adequate (ADEQUATE) Polychromasia Slight Basophilic Stippling Present Sodium Level 137mmol/L (136-145) Potassium Level 4.8mmol/L (3.5-5.1) Chloride Level 98mmol/L (98-107) Carbon Dioxide Level 33mmol/L (21-32) Anion Gap 6 (6-14) Blood Urea Nitrogen 14mg/dL (8-26) Creatinine 1.0mg/dL (0.7-1.3) Estimated GFR (Cockcroft-Gault) 83.2 Glucose Level 227mg/dL (70-99) Calcium Level 8.7mg/dL (8.5-10.1) Test 01/05/17 16:52 01/05/17 20:52 01/06/17 03:10 01/06/17 08:47 Glucose (Fingerstick) 271mg/dL (70-99) 232mg/dL (70-99) 178mg/dL (70-99) White Blood Count 14.9x10^3/uL (4.0-11.0) Red Blood Count 3.70x10^6/uL (4.30-5.70) Hemoglobin 10.8g/dL (13.0-17.5) Hematocrit 32.5% (39.0-53.0) Mean Corpuscular Volume 88fL (79-100) Mean Corpuscular Hemoglobin 29pg (25-35) Mean Corpuscular Hemoglobin Concent 33g/dL (31-37) Red Cell Distribution Width 14.7% (11.5-14.5) Platelet Count 286x10^3/uL (140-400) Neutrophils (%) (Auto) 91% (31-73) Lymphocytes (%) (Auto) 3% (24-48) Monocytes (%) (Auto) 5% (0-9) Eosinophils (%) (Auto) 0% (0-3) Basophils (%) (Auto) 0% (0-3) Neutrophils # (Auto) 13.6x10^3uL (1.8-7.7) Lymphocytes # (Auto) 0.5x10^3/uL (1.0-4.8) Monocytes # (Auto) 0.8x10^3/uL (0.0-1.1) Eosinophils # (Auto) 0.0x10^3/uL (0.0-0.7) Basophils # (Auto) 0.0x10^3/uL (0.0-0.2) Prothrombin Time 39.7SEC (11.7-14.0) Prothromb Time International Ratio 4.4 (0.8-1.1) Sodium Level 138mmol/L (136-145) Potassium Level 4.4mmol/L (3.5-5.1) Chloride Level 100mmol/L (98-107) Carbon Dioxide Level 35mmol/L (21-32) Anion Gap 3 (6-14) Blood Urea Nitrogen 13mg/dL (8-26) Creatinine 0.6mg/dL (0.7-1.3) Estimated GFR (Cockcroft-Gault) 150.0 Glucose Level 229mg/dL (70-99) Calcium Level 8.1mg/dL (8.5-10.1) Test 01/06/17 12:15 01/06/17 17:19 01/06/17 20:51 01/07/17 04:15 Glucose (Fingerstick) 326mg/dL (70-99) 246mg/dL (70-99) 273mg/dL (70-99) White Blood Count 18.7x10^3/uL (4.0-11.0) Red Blood Count 3.69x10^6/uL (4.30-5.70) Hemoglobin 10.8g/dL (13.0-17.5) Hematocrit 33.3% (39.0-53.0) Mean Corpuscular Volume 90fL (79-100) Mean Corpuscular Hemoglobin 29pg (25-35) Mean Corpuscular Hemoglobin Concent 32g/dL (31-37) Red Cell Distribution Width 14.5% (11.5-14.5) Platelet Count 348x10^3/uL (140-400) Neutrophils (%) (Auto) 91% (31-73) Lymphocytes (%) (Auto) 3% (24-48) Monocytes (%) (Auto) 6% (0-9) Eosinophils (%) (Auto) 0% (0-3) Basophils (%) (Auto) 0% (0-3) Neutrophils # (Auto) 17.0x10^3uL (1.8-7.7) Lymphocytes # (Auto) 0.6x10^3/uL (1.0-4.8) Monocytes # (Auto) 1.1x10^3/uL (0.0-1.1) Eosinophils # (Auto) 0.0x10^3/uL (0.0-0.7) Basophils # (Auto) 0.0x10^3/uL (0.0-0.2) Prothrombin Time 29.2SEC (11.7-14.0) Prothromb Time International Ratio 3.0 (0.8-1.1) Sodium Level 139mmol/L (136-145) Potassium Level 4.6mmol/L (3.5-5.1) Chloride Level 99mmol/L (98-107) Carbon Dioxide Level 37mmol/L (21-32) Anion Gap 3 (6-14) Blood Urea Nitrogen 18mg/dL (8-26) Creatinine 0.6mg/dL (0.7-1.3) Estimated GFR (Cockcroft-Gault) 150.0 BUN/Creatinine Ratio 30 (6-20) Glucose Level 268mg/dL (70-99) Calcium Level 8.2mg/dL (8.5-10.1) Total Bilirubin 0.3mg/dL (0.2-1.0) Aspartate Amino Transf (AST/SGOT) 13U/L (15-37) Alanine Aminotransferase (ALT/SGPT) 29U/L (16-63) Alkaline Phosphatase 45U/L (46-116) Total Protein 6.6g/dL (6.4-8.2) Albumin 2.6g/dL (3.4-5.0) Albumin/Globulin Ratio 0.7 (1.0-1.7) Test 01/07/17 07:15 01/07/17 12:05 Glucose (Fingerstick) 274mg/dL (70-99) 286mg/dL (70-99) Laboratory Tests Test 01/06/17 17:19 01/06/17 20:51 01/07/17 04:15 01/07/17 07:15 Glucose (Fingerstick) 246mg/dL (70-99) 273mg/dL (70-99) 274mg/dL (70-99) White Blood Count 18.7x10^3/uL (4.0-11.0) Red Blood Count 3.69x10^6/uL (4.30-5.70) Hemoglobin 10.8g/dL (13.0-17.5) Hematocrit 33.3% (39.0-53.0) Mean Corpuscular Volume 90fL (79-100) Mean Corpuscular Hemoglobin 29pg (25-35) Mean Corpuscular Hemoglobin Concent 32g/dL (31-37) Red Cell Distribution Width 14.5% (11.5-14.5) Platelet Count 348x10^3/uL (140-400) Neutrophils (%) (Auto) 91% (31-73) Lymphocytes (%) (Auto) 3% (24-48) Monocytes (%) (Auto) 6% (0-9) Eosinophils (%) (Auto) 0% (0-3) Basophils (%) (Auto) 0% (0-3) Neutrophils # (Auto) 17.0x10^3uL (1.8-7.7) Lymphocytes # (Auto) 0.6x10^3/uL (1.0-4.8) Monocytes # (Auto) 1.1x10^3/uL (0.0-1.1) Eosinophils # (Auto) 0.0x10^3/uL (0.0-0.7) Basophils # (Auto) 0.0x10^3/uL (0.0-0.2) Prothrombin Time 29.2SEC (11.7-14.0) Prothromb Time International Ratio 3.0 (0.8-1.1) Sodium Level 139mmol/L (136-145) Potassium Level 4.6mmol/L (3.5-5.1) Chloride Level 99mmol/L (98-107) Carbon Dioxide Level 37mmol/L (21-32) Anion Gap 3 (6-14) Blood Urea Nitrogen 18mg/dL (8-26) Creatinine 0.6mg/dL (0.7-1.3) Estimated GFR (Cockcroft-Gault) 150.0 BUN/Creatinine Ratio 30 (6-20) Glucose Level 268mg/dL (70-99) Calcium Level 8.2mg/dL (8.5-10.1) Total Bilirubin 0.3mg/dL (0.2-1.0) Aspartate Amino Transf (AST/SGOT) 13U/L (15-37) Alanine Aminotransferase (ALT/SGPT) 29U/L (16-63) Alkaline Phosphatase 45U/L (46-116) Total Protein 6.6g/dL (6.4-8.2) Albumin 2.6g/dL (3.4-5.0) Albumin/Globulin Ratio 0.7 (1.0-1.7) Test 01/07/17 12:05 Glucose (Fingerstick) 286mg/dL (70-99) Medications Active Scripts Medications Dose Route/Sig Days Date Category Proair Respiclick (Albuterol Sulfate) 90 Mcg Aer.[email or web address] 1 Puff IH TWICE WEEKLY PRN 01/05/17 Reported Ipratropium [place] 0.2 Mg/1 Ml Solution 1 Vial NEB BID 01/05/17 Reported Humulin R (Insulin Regular, Human) 100 Unit/1 Ml Vial 0 IJ 01/05/17 Reported Humulin R (Insulin Regular, Human) 100 Unit/1 Ml Vial 100 Unit IJ TIDAC 01/05/17 Reported Humulin N (Nph, Human Insulin Isophane) 100 Unit/1 Ml Vial 15 Unit SQ BID 01/05/17 Reported Albuterol Sulfate Conc Neb Soln (Albuterol Sulfate) 2.5 Mg/0.5 Ml Vial.neb 2.5 Mg NEB BID 01/05/17 Reported Warfarin Sodium 4 Mg Tablet 1 Tab PO DAILY 3/8/17 Reported Tums (Calcium Carbonate) 200 Mg Tab.chew 400 Mg PO TID PRN 01/05/17 Reported Nortriptyline Hcl 75 Mg Capsule 75 Mg PO HS 01/05/17 Reported Nortriptyline Hcl 50 Mg Capsule 50 Mg PO HS 01/05/17 Reported Metoprolol Tartrate 50 Mg Tablet 1 Tab PO BID 01/05/17 Reported Metformin Hcl 1,000 Mg Tablet 1 Tab PO BID 01/05/17 Reported Lasix (Furosemide) 40 Mg Tablet 1 Tab PO DAILY 01/05/17 Reported Benadryl (Diphenhydramine Hcl) 25 Mg Capsule 2 Cap PO TID PRN 01/05/17 Reported Atorvastatin Calcium 10 Mg Tablet 1 Tab PO DAILY 01/05/17 Reported Alvesco (Ciclesonide) 6.1 Gm Hfa.aer.ad 160 Mcg IH [id number] 01/05/17 Reported Impression . 1. 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 2. 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 History of pulmonary embolism diagnosed 2 years ago, on chronic anticoagulation. Family h/o factor V leiden mutation(mother), Pt was negative 4. Possible underlying chronic obstructive pulmonary disease. 5. Obesity with suspected obstructive sleep apnea. Plan . 1. Continue with present canula/ prn BiPAP. 2. Follow the ABGs improved. 3. CT chest reviewed 4. Holding Coumadin. re-start when the INR is between 2 and 3. 5. 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 Mild diuresis. 7. Discussed with RN and RT. 8. Steroids 9. repeat cxr Tuesday. d/c home tuesday CHEVY SHEFFIELD MD Jan 07, 2017 13:11
[2017-01-07 15:00] VITALS: BP 117/90
[2017-01-07] MEDS ORDERED: WARFARIN 2 MG TABLET. PO ONE (16:00)
[2017-01-07 19:00] VITALS: BP 123/84
[2017-01-07] MEDS: ATORVASTATIN CALCIUM 10 MG TABLET. PO SCH (20:32)
[2017-01-07] MEDS: DIPHENHYDRAMINE HCL 25 MG CAPSULE PO PRN (20:41)
[2017-01-07] MEDS ORDERED: NORTRIPTYLINE 25 MG CAPSULE PO SCH (21:00)
[2017-01-07] MEDS ORDERED: INSULIN DETEMIR 300 UNITS/3 ML INSULN.PEN. SQ SCH (21:00)
[2017-01-07 23:00] VITALS: BP 122/81
[2017-01-08] MEDS: HYDROCODONE/APAP 5/325MG TABLET. PO PRN ×4 (01:15→16:55)
[2017-01-08 03:00] VITALS: BP 143/95
[2017-01-08] MEDS: methylPREDNISolone SOD SUCC PF 40 MG/ML VIAL. IV SCH (05:56)
[2017-01-08] MEDS: PIPERACILLIN/TAZOBACTAM 4.5 GM in IV NORMAL SALINE 100ML 100 ML IV SCH ×2 (05:57→12:22)
[2017-01-08] MEDS: IPRATRPIUM/ALBUTEROL 0.5/2.5MG 3 ML NEBU. NEB SCH ×3 (06:56→16:43)
[2017-01-08] MEDS: BUDESONIDE 0.5 MG/2 ML NEBU NEB SCH (06:56)
[2017-01-08 07:00] VITALS: BP 139/92
[2017-01-08] MEDS: FUROSEMIDE 40 MG TABLET PO SCH (08:56)
[2017-01-08] MEDS: PANTOPRAZOLE 40 MG TABLET. PO SCH (08:56)
[2017-01-08] MEDS: METOPROLOL TART IMMED RELEASE 50 MG TABLET PO SCH (08:57)
[2017-01-08] MEDS: INSULIN ASPART 300 UNITS/3 ML INSULN.PEN SQ SCH ×6 (09:03→17:16)
[2017-01-08] MEDS: DIPHENHYDRAMINE HCL 25 MG CAPSULE PO PRN ×2 (10:48→16:53)
[2017-01-08 10:53] VITALS: BP 149/83
--- NOTE | 2017-01-08 12:48 | PDOC ---
PULMONARY PROGRESS NOTES Subjective feels better,off BIPAP Vitals Vital Signs Date Time Temp Pulse Resp B/P Pulse Ox O2 Delivery O2 Flow Rate FiO2 01/08/17 11:12 96 Nasal Cannula 5.0 01/08/17 10:53 97.5 105 21 149/83 97.5 General: Alert, No acute distress Lungs: Other (decrease bs, w. rales, no wheeze) Cardiovascular: S1 Abdomen: Soft Neuro Exam: Alert Extremities: Other (1+edema) Labs Laboratory Tests Test 01/06/17 17:19 01/06/17 20:51 01/07/17 04:15 01/07/17 07:15 Glucose (Fingerstick) 246mg/dL (70-99) 273mg/dL (70-99) 274mg/dL (70-99) White Blood Count 18.7x10^3/uL (4.0-11.0) Red Blood Count 3.69x10^6/uL (4.30-5.70) Hemoglobin 10.8g/dL (13.0-17.5) Hematocrit 33.3% (39.0-53.0) Mean Corpuscular Volume 90fL (79-100) Mean Corpuscular Hemoglobin 29pg (25-35) Mean Corpuscular Hemoglobin Concent 32g/dL (31-37) Red Cell Distribution Width 14.5% (11.5-14.5) Platelet Count 348x10^3/uL (140-400) Neutrophils (%) (Auto) 91% (31-73) Lymphocytes (%) (Auto) 3% (24-48) Monocytes (%) (Auto) 6% (0-9) Eosinophils (%) (Auto) 0% (0-3) Basophils (%) (Auto) 0% (0-3) Neutrophils # (Auto) 17.0x10^3uL (1.8-7.7) Lymphocytes # (Auto) 0.6x10^3/uL (1.0-4.8) Monocytes # (Auto) 1.1x10^3/uL (0.0-1.1) Eosinophils # (Auto) 0.0x10^3/uL (0.0-0.7) Basophils # (Auto) 0.0x10^3/uL (0.0-0.2) Prothrombin Time 29.2SEC (11.7-14.0) Prothromb Time International Ratio 3.0 (0.8-1.1) Sodium Level 139mmol/L (136-145) Potassium Level 4.6mmol/L (3.5-5.1) Chloride Level 99mmol/L (98-107) Carbon Dioxide Level 37mmol/L (21-32) Anion Gap 3 (6-14) Blood Urea Nitrogen 18mg/dL (8-26) Creatinine 0.6mg/dL (0.7-1.3) Estimated GFR (Cockcroft-Gault) 150.0 BUN/Creatinine Ratio 30 (6-20) Glucose Level 268mg/dL (70-99) Hemoglobin A1c 7.1% (4.8-5.6) Calcium Level 8.2mg/dL (8.5-10.1) Total Bilirubin 0.3mg/dL (0.2-1.0) Aspartate Amino Transf (AST/SGOT) 13U/L (15-37) Alanine Aminotransferase (ALT/SGPT) 29U/L (16-63) Alkaline Phosphatase 45U/L (46-116) Total Protein 6.6g/dL (6.4-8.2) Albumin 2.6g/dL (3.4-5.0) Albumin/Globulin Ratio 0.7 (1.0-1.7) Test 01/07/17 12:05 01/07/17 17:06 01/07/17 20:30 01/08/17 07:23 Glucose (Fingerstick) 286mg/dL (70-99) 313mg/dL (70-99) 268mg/dL (70-99) 223mg/dL (70-99) Test 01/08/17 11:20 Glucose (Fingerstick) 271mg/dL (70-99) Laboratory Tests Test 01/07/17 17:06 01/07/17 20:30 01/08/17 07:23 01/08/17 11:20 Glucose (Fingerstick) 313mg/dL (70-99) 268mg/dL (70-99) 223mg/dL (70-99) 271mg/dL (70-99) Medications Active Scripts Medications Dose Route/Sig Days Date Category Proair Respiclick (Albuterol Sulfate) 90 Mcg Aer.[email or web address] 1 Puff IH TWICE WEEKLY PRN 01/05/17 Reported Ipratropium [place] 0.2 Mg/1 Ml Solution 1 Vial NEB BID 01/05/17 Reported Humulin R (Insulin Regular, Human) 100 Unit/1 Ml Vial 0 IJ 01/05/17 Reported Humulin R (Insulin Regular, Human) 100 Unit/1 Ml Vial 100 Unit IJ TIDAC 01/05/17 Reported Humulin N (Nph, Human Insulin Isophane) 100 Unit/1 Ml Vial 15 Unit SQ BID 01/05/17 Reported Albuterol Sulfate Conc Neb Soln (Albuterol Sulfate) 2.5 Mg/0.5 Ml Vial.neb 2.5 Mg NEB BID 01/05/17 Reported Warfarin Sodium 4 Mg Tablet 1 Tab PO DAILY 01/05/17 Reported Tums (Calcium Carbonate) 200 Mg Tab.chew 400 Mg PO TID PRN 01/05/17 Reported Nortriptyline Hcl 75 Mg Capsule 75 Mg PO HS 01/05/17 Reported Nortriptyline Hcl 50 Mg Capsule 50 Mg PO HS 01/05/17 Reported Metoprolol Tartrate 50 Mg Tablet 1 Tab PO BID 01/05/17 Reported Metformin Hcl 1,000 Mg Tablet 1 Tab PO BID 01/05/17 Reported Lasix (Furosemide) 40 Mg Tablet 1 Tab PO DAILY 01/05/17 Reported Benadryl (Diphenhydramine Hcl) 25 Mg Capsule 2 Cap PO TID PRN 01/05/17 Reported Atorvastatin Calcium 10 Mg Tablet 1 Tab PO DAILY 01/05/17 Reported [place]ves[place] (Ciclesonide) 6.1 Gm Hfa.aer.ad 160 Mcg IH [id number] 01/05/17 Reported Impression . 1. 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 2. 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 History of pulmonary embolism diagnosed 2 years ago, on chronic anticoagulation. Family h/o factor V leiden mutation(mother), Pt was negative 4. Possible underlying chronic obstructive pulmonary disease. 5. Obesity with suspected obstructive sleep apnea. Plan . 1. Continue with present canula 2. Follow the ABGs improved. 3. CT chest reviewed 4. Holding Coumadin. re-start when the INR is between 2 and 3. 5. 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 Mild diuresis. 7. Discussed with RN 8. Steroids 9. repeat cxr Tuesday. d/c home tuesday CHEVY SHEFFIELD MD Jan 08, 2017 12:48
--- NOTE | 2017-01-08 13:40 | RAD ---
Exam performed: One view chest. Indication: ILD 667 Date of Service: 01/08/2017 2:00 AM Comparison: CTA chest from 01/05/17. Single AP upright portable view chest findings: Cardiomediastinal silhouette is mildly enlarged.Prominent interstitial markings may be related to the given history of interstitial lung disease. No acute infiltrates, effusion or pneumothorax is detected. The bony structures are normal. 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
[2017-01-08 13:58] LABS: INR 1.6 (0.8-1.1); PROTHROMBIN TIME PATIENT 17.9 SEC (11.7-14.0)
[2017-01-08] MEDS ORDERED: CALCIUM CARBONATE 500 MG TAB.CHEW PO PRN (14:15)
--- NOTE | 2017-01-08 14:53 | PDOC ---
PROGRESS NOTES Chief Complaint Chief Complaint 1. acute hypoxic and hypercapnic resp failure 2. h/o sarcoidosis 3. h/o PE on coumadin 4. HAP 5. obesity, BMI 37 6. DM2 7. HTN 8. SIRS, sepsis, pneumonia plan: fu with pulm decrease solumedrol to bid increase levemir to 40u qhs, aspart 15u tid ,ssi duoneb on iv abx cxr repeated as per pulm dc on Tuesday back to [facility] History of Present Illness History of Present Illness t/o ICU 01/06/17 Needing BIPAP there SOA after short walks INcarcerated - minimum security - no guards at bedside Bec of SOA, can ambulate with wheelchair at times BS high - on high dose steroids for the sarcoid HAs had sarcoidosis since 2000 INR 3 today (from, 4 plus yesterday) Vitals Vitals Vital Signs Date Time Temp Pulse Resp B/P Pulse Ox O2 Delivery O2 Flow Rate FiO2 01/08/17 12:59 20 96 Nasal Cannula 5.0 01/08/17 10:53 97.5 105 149/83 97.5 Physical Exam General: Alert, Oriented X3, Cooperative, mild distress, moderate distress Heart: Regular rate, No murmurs Lungs: Other (decrease bs, w. rales, no wheeze) Abdomen: Normal bowel sounds, Soft Extremities: No clubbing, No cyanosis, No edema Skin: No rashes, No breakdown Labs LABS Laboratory Tests Test 01/07/17 17:06 01/07/17 20:30 01/08/17 07:23 01/08/17 11:20 Glucose (Fingerstick) 313mg/dL (70-99) 268mg/dL (70-99) 223mg/dL (70-99) 271mg/dL (70-99) Test 01/08/17 13:30 Prothrombin Time 17.9SEC (11.7-14.0) Prothromb Time International Ratio 1.6 (0.8-1.1) Review of Systems Review of Systems no fever, chills, chest pain Assessment and Plan Assessmemt and Plan Problems Medical Problems: (1) Respiratory failure Status: Acute Problems: Comment Review of Relevant I have reviewed the following items radha (where applicable) has been applied. Labs Laboratory Tests Test 01/06/17 17:19 01/06/17 20:51 01/07/17 04:15 01/07/17 07:15 Glucose (Fingerstick) 246mg/dL (70-99) 273mg/dL (70-99) 274mg/dL (70-99) White Blood Count 18.7x10^3/uL (4.0-11.0) Red Blood Count 3.69x10^6/uL (4.30-5.70) Hemoglobin 10.8g/dL (13.0-17.5) Hematocrit 33.3% (39.0-53.0) Mean Corpuscular Volume 90fL (79-100) Mean Corpuscular Hemoglobin 29pg (25-35) Mean Corpuscular Hemoglobin Concent 32g/dL (31-37) Red Cell Distribution Width 14.5% (11.5-14.5) Platelet Count 348x10^3/uL (140-400) Neutrophils (%) (Auto) 91% (31-73) Lymphocytes (%) (Auto) 3% (24-48) Monocytes (%) (Auto) 6% (0-9) Eosinophils (%) (Auto) 0% (0-3) Basophils (%) (Auto) 0% (0-3) Neutrophils # (Auto) 17.0x10^3uL (1.8-7.7) Lymphocytes # (Auto) 0.6x10^3/uL (1.0-4.8) Monocytes # (Auto) 1.1x10^3/uL (0.0-1.1) Eosinophils # (Auto) 0.0x10^3/uL (0.0-0.7) Basophils # (Auto) 0.0x10^3/uL (0.0-0.2) Prothrombin Time 29.2SEC (11.7-14.0) Prothromb Time International Ratio 3.0 (0.8-1.1) Sodium Level 139mmol/L (136-145) Potassium Level 4.6mmol/L (3.5-5.1) Chloride Level 99mmol/L (98-107) Carbon Dioxide Level 37mmol/L (21-32) Anion Gap 3 (6-14) Blood Urea Nitrogen 18mg/dL (8-26) Creatinine 0.6mg/dL (0.7-1.3) Estimated GFR (Cockcroft-Gault) 150.0 BUN/Creatinine Ratio 30 (6-20) Glucose Level 268mg/dL (70-99) Hemoglobin A1c 7.1% (4.8-5.6) Calcium Level 8.2mg/dL (8.5-10.1) Total Bilirubin 0.3mg/dL (0.2-1.0) Aspartate Amino Transf (AST/SGOT) 13U/L (15-37) Alanine Aminotransferase (ALT/SGPT) 29U/L (16-63) Alkaline Phosphatase 45U/L (46-116) Total Protein 6.6g/dL (6.4-8.2) Albumin 2.6g/dL (3.4-5.0) Albumin/Globulin Ratio 0.7 (1.0-1.7) Test 01/07/17 12:05 01/07/17 17:06 01/07/17 20:30 01/08/17 07:23 Glucose (Fingerstick) 286mg/dL (70-99) 313mg/dL (70-99) 268mg/dL (70-99) 223mg/dL (70-99) Test 01/08/17 11:20 01/08/17 13:30 Glucose (Fingerstick) 271mg/dL (70-99) Prothrombin Time 17.9SEC (11.7-14.0) Prothromb Time International Ratio 1.6 (0.8-1.1) Laboratory Tests Test 01/07/17 17:06 01/07/17 20:30 01/08/17 07:23 01/08/17 11:20 Glucose (Fingerstick) 313mg/dL (70-99) 268mg/dL (70-99) 223mg/dL (70-99) 271mg/dL (70-99) Test 01/08/17 13:30 Prothrombin Time 17.9SEC (11.7-14.0) Prothromb Time International Ratio 1.6 (0.8-1.1) Medications Current Medications Ondansetron HCl (Zofran) 4 mg PRN Q6HRS PRN IV NAUSEA/VOMITING; Start 01/05/17 at 13:00 Morphine Sulfate 2 mg PRN Q1HR PRN IV PAIN; Start 01/05/17 at 13:00 Acetaminophen/ Hydrocodone Bitart (Lortab 5/325) 1 tab PRN Q4HRS PRN PO MODEARTE - SEVERE PAIN Last administered on 01/08/17 10:50; Start 01/05/17 at 13 :00 Acetaminophen (Tylenol) 650 mg PRN Q6HRS PRN PO MILD PAIN / TEMP; Start at 13:00 Heparin Sodium (Porcine) 5,000 unit Q8HRS SQ Last administered on 01/06/17 05: 31; Start 01/05/17 at 14:00; Stop 01/06/17 at 07:45; Status DC Methylprednisolone Sodium Succinate 40 mg 40 mg Q8HRS IV Last administered on 05:56; Start 01/05/17 at 14:00; Stop 01/08/17 at 12:54; Status DC Vancomycin HCl/ Sodium Chloride (Iv Sodium Chloride 0.9% 500ml Bag) 500 ml @ 250 mls/hr Q12H IV ; Start 01/05/17 at 13:15; Status UNV Vancomycin HCl (Vanco Per Pharmacy) 1 each PRN DAILY PRN MC SEE COMMENTS Last administered on 01/05/17 16:21; Start 01/05/17 at 13:15; Stop 01/06/17 at 11:05; Status DC Pantoprazole Sodium 40 mg 40 mg DAILYAC PO Last administered on 01/08/17 08:56 ; Start 01/05/17 at 14:00 Piperacillin Sod/ Tazobactam Sod/ Sodium Chloride (Zosyn/Iv Sodium Chloride 0.9 % 100ml) 100 ml @ 200 mls/hr Q6HRS IV Last administered on 01/08/17 12:22; Start 01/05/17 at 14:00 Piperacillin Sod/ Tazobactam Sod (Zosyn Per Pharmacy) 1 each PRN DAILY PRN MC SEE COMMENTS; Start 01/05/17 at 13:15; Stop 01/06/17 at 08:34; Status DC Atorvastatin Calcium (Lipitor) 10 mg QHS PO Last administered on 01/07/17 20: 32; Start 01/05/17 at 21:00 Calcium Carbonate/ Glycine (Tums) 400 mg PRN TID PRN PO HEARTBURN / GAS; Start 01/05/17 at 13:15; Stop 01/08/17 at 14:13; Status DC Diphenhydramine HCl (Benadryl) 25 mg TID PRN PRN PO ITCHING Last administered on 01/08/17 10:48; Start 01/05/17 at 13:15 Furosemide (Lasix) 40 mg DAILY PO ; Start 01/05/17 at 14:00; Stop 01/05/17 at 14: 00; Status DC Metoprolol Tartrate (Lopressor) 50 mg BID PO Last administered on 01/08/17 08: 57; Start 01/05/17 at 14:00 Warfarin Sodium (Coumadin) 4 mg DAILY PO ; Start 01/06/17 at 09:00; Status UNV Albuterol Sulfate (Ventolin Neb Soln) 2.5 mg RTQID NEB ; Start 01/05/17 at 16:00 ; Stop 01/05/17 at 20:29; Status DC Nortriptyline HCl (Pamelor) 75 mg QHS PO Last administered on 01/06/17 20:58; Start 01/05/17 at 21:00; Stop 01/07/17 at 12:57; Status DC Warfarin Sodium (Coumadin Per Pharmacy) 1 each PRN DAILY PRN MC SEE COMMENTS Last administered on 01/08/17 14:22; Start 01/05/17 at 13:15 Insulin Detemir (Levemir) 20 units QHS SQ Last administered on 01/06/17 20:55; Start 01/05/17 at 21:00; Stop 01/07/17 at 08:22; Status DC Insulin Aspart (Novolog) 8 units TIDAC SQ Last administered on 01/05/17 17:34; Start 01/05/17 at 16:30; Stop 01/06/17 at 08:44; Status DC Insulin Aspart (Novolog) 0-9 UNITS TIDWMEALS SQ Last administered on 01/08/17 12:32; Start 01/05/17 at 17:00 Dextrose 12.5 gm 12.5 gm PRN Q15MIN PRN IV SEE COMMENTS; Start 01/05/17 at 13:15 Vancomycin HCl/ Sodium Chloride (Iv Sodium Chloride 0.9% 500ml Bag) 500 ml @ 250 mls/hr ONCE ONCE IV Last administered on 01/05/17 15:15; Start 01/05/17 at 14:00; Stop 01/05/17 at 15:59; Status DC Albuterol/ Ipratropium 3 ml 3 ml RTQID NEB Last administered on 01/08/17 11:12 ; Start 01/05/17 at 16:00 Levofloxacin/ Dextrose (LEVAQUIN 500mg PREMIX) 100 ml @ 100 mls/hr Q24H IV Last administered on 01/08/17 14:16; Start 01/05/17 at 14:00 Furosemide (Lasix) 20 mg 1X ONCE IVP Last administered on 01/05/17 15:11; Start 01/05/17 at 14:00; Stop 01/05/17 at 14:01; Status DC Methylprednisolone Sodium Succinate (Solu-Medrol 40mg Vial) 40 mg Q8HRS IV ; Start 01/05/17 at 14:00; Status UNV Furosemide (Lasix) 40 mg DAILY PO Last administered on 01/08/17 08:56; Start 01/06/17 at 09:00 Warfarin Sodium (Coumadin - No Dose Today) 1 each 1X WARF ONCE MC Last administered on 01/05/17 16:00; Start 01/05/17 at 16:00; Stop 01/05/17 at 16:01; Status DC Budesonide (Pulmicort) 0.5 mg RTBID NEB Last administered on 01/08/17 06:56; Start 01/05/17 at 20:00 Iohexol (Omnipaque 300 Mg/ml) 75 ml 1X ONCE IV Last administered on 01/05/17 17:07; Start 01/05/17 at 14:45; Stop 01/05/17 at 14:46; Status DC Info (Do NOT chart on this entry -- for MONITORING) 1 each PRN DAILY PRN MC SEE COMMENTS; Start 01/05/17 at 15:00; Stop 01/07/17 at 14:59; Status DC Hydralazine HCl 10 mg 10 mg PRN Q4HRS PRN IVP ELEVATED BP, SEE COMMENTS; Start 01/05/17 at 15:30 Sodium Chloride 500 ml @ 500 mls/hr 1X ONCE IV Last administered on 01/05/17 11:30; Start 01/05/17 at 11:30; Stop 01/05/17 at 15:51; Status DC Vancomycin HCl/ Sodium Chloride (Iv Sodium Chloride 0.9% 500ml Bag) 500 ml @ 250 mls/hr Q8H IV Last administered on 01/06/17 06:29; Start 01/05/17 at 23:00; Stop 01/06/17 at 11:04; Status DC Vancomycin HCl 1 each 1X ONCE MC ; Start 01/06/17 at 14:30; Stop 01/06/17 at 14: 30; Status DC Insulin Aspart (Novolog) 12 units TIDAC SQ Last administered on 01/06/17 17:49 ; Start 01/06/17 at 11:30; Stop 01/07/17 at 08:22; Status DC Warfarin Sodium (Coumadin - No Dose Today) 1 each 1X WARF ONCE MC ; Start at 16:00; Stop 01/06/17 at 16:01; Status DC Nortriptyline HCl (Pamelor) 50 mg QHS PO Last administered on 01/06/17 20:59; Start 01/06/17 at 21:00; Stop 01/07/17 at 12:57; Status DC Insulin Aspart (Novolog) 15 units TIDAC SQ Last administered on 01/08/17 12:31 ; Start 01/07/17 at 11:30 Insulin Detemir (Levemir) 30 units QHS SQ Last administered on 01/07/17 20:39 ; Start 01/07/17 at 21:00 Insulin Detemir (Levemir) 10 units ONCE STAT SQ Last administered on 09:17; Start 01/07/17 at 08:22; Stop 01/07/17 at 08:23; Status DC Warfarin Sodium (Coumadin) 2 mg 1X WARF ONCE PO Last administered on 17:07; Start 01/07/17 at 16:00; Stop 01/07/17 at 16:01; Status DC Nortriptyline HCl (Pamelor) 125 mg QHS PO Last administered on 01/07/17 20:32 ; Start 01/07/17 at 21:00 Insulin Aspart (Novolog) 12 units 1X ONCE SQ Last administered on 01/07/17 08 :15; Start 01/07/17 at 08:15; Stop 01/07/17 at 13:15; Status DC Methylprednisolone Sodium Succinate (Solu-Medrol 40mg Vial) 40 mg BID IV ; Start 01/08/17 at 21:00 Calcium Carbonate/ Glycine (Tums) 500 mg PRN TID PRN PO HEARTBURN / GAS; Start 01/08/17 at 14:15 Warfarin Sodium (Coumadin) 2 mg 1X WARF ONCE PO ; Start 01/08/17 at 16:00; Stop 01/08/17 at 16:01 Active Scripts Active Reported Proair Respiclick (Albuterol Sulfate) 90 Mcg Aer.pow.ba 1 Puff IH TWICE WEEKLY PRN Ipratropium [place] 0.2 Mg/1 Ml Solution 1 Vial NEB BID Humulin R (Insulin Regular, Human) 100 Unit/1 Ml Vial 0 IJ Humulin R (Insulin Regular, Human) 100 Unit/1 Ml Vial 100 Unit IJ TIDAC Humulin N (Nph, Human Insulin Isophane) 100 Unit/1 Ml Vial 15 Unit SQ BID Albuterol Sulfate Conc Neb Soln (Albuterol Sulfate) 2.5 Mg/0.5 Ml Vial.neb 2.5 Mg NEB BID Warfarin Sodium 4 Mg Tablet 1 Tab PO DAILY Tums (Calcium Carbonate) 200 Mg Tab.chew 400 Mg PO TID PRN Nortriptyline Hcl 75 Mg Capsule 75 Mg PO HS Nortriptyline Hcl 50 Mg Capsule 50 Mg PO HS Metoprolol Tartrate 50 Mg Tablet 1 Tab PO BID Metformin Hcl 1,000 Mg Tablet 1 Tab PO BID Lasix (Furosemide) 40 Mg Tablet 1 Tab PO DAILY Benadryl (Diphenhydramine Hcl) 25 Mg Capsule 2 Cap PO TID PRN Atorvastatin Calcium 10 Mg Tablet 1 Tab PO DAILY [place] (Ciclesonide) 6.1 Gm Hfa.aer.ad 160 Mcg IH [id number] Vitals/I & O Vital Sign - Last 24 Hours 01/07/17 01/07/17 01/07/17 01/07/17 15:00 16:16 19:00 19:25 Temp 97.9 95.7 97.9 95.7 Pulse 113 103 Resp 24 21 B/P 117/90 123/84 Pulse Ox 95 95 O2 Delivery Nasal Cannula Nasal Cannula Nasal Cannula Nasal Cannula O2 Flow Rate 4.0 5.0 4.0 01/07/17 01/07/17 01/07/17 01/07/17 20:00 20:31 21:06 23:00 Temp 97.9 97.9 Pulse 103 85 Resp B/P 123/84 122/81 Pulse Ox 98 94 O2 Delivery Nasal Cannula Nasal Cannula Nasal Cannula O2 Flow Rate 4.0 5.0 4.0 01/08/17 01/08/17 01/08/17 01/08/17 01:15 03:00 05:56 06:56 Temp 97.9 97.9 Pulse 97 B/P 143/95 Pulse Ox 94 93 93 96 O2 Delivery Nasal Cannula Nasal Cannula Nasal Cannula Nasal Cannula O2 Flow Rate 4.0 4.0 4.0 5.0 01/08/17 01/08/17 01/08/17 01/08/17 07:00 08:00 08:57 10:50 Temp 96.8 96.8 Pulse 114 114 Resp B/P 139/92 139/92 Pulse Ox 96 96 O2 Delivery Nasal Cannula Nasal Cannula Nasal Cannula O2 Flow Rate 4.0 4.0 4.0 01/08/17 01/08/17 01/08/17 10:53 11:12 12:59 Temp 97.5 97.5 Pulse 105 B/P 149/83 Pulse Ox 95 96 96 O2 Delivery Nasal Cannula Nasal Cannula Nasal Cannula O2 Flow Rate 4.0 5.0 5.0 Intake and Output 01/07/17 01/07/17 01/08/17 15:00 23:00 07:00 Intake Total 0 ml Output Total 950 ml Balance -950 ml ADEN CEE MD Jan 08, 2017 14:53
--- NOTE | 2017-01-08 15:28 | PDOC ---
Provider Note Provider Note CXR reviewed 01/08. c/w CXR 01/05. improving infiltrates could go home on PO coumadin, antibiotics and home steroid dose CHEVY SHEFFIELD MD Jan 08, 2017 15:28
[2017-01-08 15:39] VITALS: BP 155/93
[2017-01-08] MEDS ORDERED: WARFARIN 2 MG TABLET. PO ONE (16:00)
[2017-01-08] MEDS ORDERED: LEVO750T31 PO (16:48)
[2017-01-08] MEDS ORDERED: PRED20TA PO (16:48)
--- NOTE | 2017-01-08 17:12 | PDOC3 ---
Discharge Summary [facility] Date of Admission: Jan 05, 2017 Discharge Date: Jan 08, 2017 Admitting Diagnosis 1. acute hypoxic and hypercapnic resp failure 2. h/o sarcoidosis 3. h/o PE on coumadin 4. HAP 5. obesity, BMI 37 6. DM2 7. HTN 8. SIRS, sepsis, pneumonia Problems: Final Diagnosis Problems Medical Problems: (1) Respiratory failure Status: Acute CONSULTS pulm Brief Hospital Course 41yo M, from retirement, h/o sarcoidosis, PE on coumadin, was transferred from [facility] for resp failure. Pt is on bipap seen in ICU, lethargic, cannot provide history. as per Nurse AND [facility] ERP, pt got PNA, SOB WAS on azithromycin for 5days, no improvement, came to ER. denies cough, ABG showed PH 7.28/pco2 66/po2 39 on RA, then put on Bipap. pt has HR 140s, INR 3.8 today chronically on prednisone 20mg daily, recent up to 50mg for sob. pt was on bipap in ICU, better with solumedrol, iv abx. coumadin held for high INR pt improved on 2nd day, no wheezing now. dc back to retirement with levaquin, taper steroid. dc time 35min General: Alert, Oriented X3, Cooperative, mild distress, moderate distress Heart: Regular rate, No murmurs Lungs: Other (decrease bs, w. rales, no wheeze) Abdomen: Normal bowel sounds, Soft Extremities: No clubbing, No cyanosis, No edema Skin: No rashes, No breakdown Problems: Disposition retirement CONDITION AT DISCHARGE: Improved Diet regular Scheduled Albuterol Sulfate (Albuterol Sulfate Conc Neb Soln) 2.5 MG NEB BID (Reported) Atorvastatin Calcium (Atorvastatin Calcium) 1 TAB PO DAILY (Reported) Ciclesonide (Alvesco) 160 MCG IH BID66 (Reported) Diphenhydramine Hcl (Benadryl) 2 CAP PO TID PRN (Reported) Furosemide (Lasix) 1 TAB PO DAILY (Reported) Insulin Regular, Human (Humulin R) 100 UNIT IJ TIDAC (Reported) Ipratropium [place] (Ipratropium [place]) 1 VIAL NEB BID (Reported) Levofloxacin (Levaquin) 750 MG PO DAILY06 Metformin Hcl (Metformin Hcl) 1 TAB PO BID (Reported) Metoprolol Tartrate (Metoprolol Tartrate) 1 TAB PO BID (Reported) Nortriptyline Hcl (Nortriptyline Hcl) 50 MG PO HS (Reported) Nortriptyline Hcl (Nortriptyline Hcl) 75 MG PO HS (Reported) Nph, Human Insulin Isophane (Humulin N) 15 UNIT SQ BID (Reported) Prednisone (Prednisone) 40 MG PO DAILY Warfarin Sodium (Warfarin Sodium) 1 TAB PO DAILY (Reported) Scheduled PRN Albuterol Sulfate (Proair Respiclick) 1 PUFF IH TWICE WEEKLY PRN PRN SHORTNESS OF BREATH (Reported) Calcium Carbonate (Tums) 400 MG PO TID PRN PRN HEARTBURN / GAS (Reported) Miscellaneous Medications Insulin Regular, Human (Humulin R) 0 IJ (Reported) ADEN CEE MD Jan 08, 2017 17:12
[2017-01-08] MEDS ORDERED: INSULIN DETEMIR 300 UNITS/3 ML INSULN.PEN. SQ SCH (21:00)
[2017-01-08] MEDS ORDERED: methylPREDNISolone SOD SUCC PF 40 MG/ML VIAL. IV SCH (21:00)
[2017-01-09] MEDS ORDERED: LEVOFLOXACIN 750 MG TABLET. PO SCH (06:00)
[2017-01-09] MEDS ORDERED: PREDNISONE 20 MG TABLET PO SCH (09:00)
== END 2017-01-08 17:23 | DRG 871 ==
LOC: EDSEX 11:40 → 1 WEST ICU 11:40 → EEVIPCON 11:40 → 6 SOUTH 01-06 19:29
PROVIDERS: ADMIT Internal Medicine; ATTEND Internal Medicine
DX: A41.9 Sepsis, unspecified organism (principal); J18.9 Pneumonia, unspecified organism; J96.21 Acute and chronic respiratory failure with hypoxia; J96.22 Acute and chronic respiratory failure with hypercapnia; J44.1 Chronic obstructive pulmonary disease with (acute) exacerbation; E87.2 Acidosis; R65.10 Systemic inflammatory response syndrome (SIRS) of non-infectious origin without acute organ dysfunction; D86.9 Sarcoidosis, unspecified; E11.9 Type 2 diabetes mellitus without complications; E66.9 Obesity, unspecified; G47.33 Obstructive sleep apnea (adult) (pediatric); I10 Essential (primary) hypertension; E66.01 Morbid (severe) obesity due to excess calories; I27.2 Other secondary pulmonary hypertension; Y95 Nosocomial condition; Z68.37 Body mass index [BMI] 37.0-37.9, adult; Z79.01 Long term (current) use of anticoagulants; Z79.52 Long term (current) use of systemic steroids; Z83.3 Family history of diabetes mellitus; Z86.711 Personal history of pulmonary embolism; Z87.891 Personal history of nicotine dependence; Z88.6 Allergy status to analgesic agent; Z88.0 Allergy status to penicillin
CPT/HCPCS: 36415; 36600; 71010; 71275; 80048; 80053; 82805; 82947; 83036; 83605; 85007; 85027; 85610; 87641; 93005; 93306; 94250; 94640; 94660; 94760; J1815; J1956; J2543; J2920; J3370; J7040; J7620; Q0163; Q9967

== ENCOUNTER 2018-05-22 07:12 | Day surgery (SDC) | payer OTHER ==
[~2018-05-22 07:12] MED LIST: HEPARIN for ARTERIAL LINE 1,500 ML; IOHEXOL 300 MG/ML 100ML VIAL.; IV RINGERS,LACTATED 1000ML 1,000 ML IV; LIDOCAINE 1% PF 2 ML VIAL. ID; LIDOCAINE 2% 20 ML VIAL.; PROCHLORPERAZINE 10 MG/2 ML VIAL. IV; fentaNYL PF VIAL 100 MCG/2 ML VIAL IV
[2018-05-22] MEDS ORDERED: IOHEXOL 300 MG/ML 100ML VIAL. (07:13)
[2018-05-22] MEDS ORDERED: MIDAZOLAM HCL/PF 5 MG/5 ML VIAL. (07:29)
[2018-05-22] MEDS ORDERED: fentaNYL PF VIAL 100 MCG/2 ML VIAL (07:29)
[2018-05-22] MEDS ORDERED: LIDOCAINE 2% VISCOUS 15 ML SOLUTION. SWSW (07:30)
[2018-05-22] MEDS ORDERED: LIDOCAINE 2% TOPICAL JELLY 30GM TUBE. TP (07:30)
[2018-05-22] MEDS ORDERED: BENZOCAINE ONE 20% MUCOSAL SPRAY. MM (07:30)
[2018-05-22 07:45] LABS: HEMATOCRIT 37.4 % (39.0-53.0); HEMOGLOBIN 11.9 g/dL (13.0-17.5); MEAN CORPUSCULAR HEMOGLOBIN 27 pg (25-35); MEAN CORPUSCULAR HGB CONC 32 g/dL (31-37); MEAN CORPUSCULAR VOLUME 86 fL (79-100); PLATELET COUNT 239 x10^3/uL (140-400); RED BLOOD COUNT 4.36 x10^6/uL (4.30-5.70); RED CELL DISTRIBUTION WIDTH 17.5 % (11.5-14.5); WHITE BLOOD COUNT 18.2 x10^3/uL (4.0-11.0)
[2018-05-22 08:04] LABS: ANION GAP 5 (6-14); BLOOD UREA NITROGEN 14 mg/dL (8-26); CARBON DIOXIDE 36 mmol/L (21-32); CHLORIDE 103 mmol/L (98-107); CREATININE 0.8 mg/dL (0.7-1.3); GFR 106.5; GLUCOSE 229 mg/dL (70-99); POTASSIUM 4.2 mmol/L (3.5-5.1); SODIUM 144 mmol/L (136-145)
[2018-05-22 08:14] LABS: INR 1.1 (0.8-1.1); PARTIAL THROMBOPLASTIN TIME 22 SEC (24-38); PROTHROMBIN TIME PATIENT 14.1 SEC (11.7-14.0)
[2018-05-22] MEDS ORDERED: PROPOFOL 20 ML IV (08:24)
[2018-05-22] MEDS ORDERED: BENZOCAINE ONE 20% MUCOSAL SPRAY. (08:43)
[2018-05-22] MEDS: BENZOCAINE ONE 20% MUCOSAL SPRAY. MM (09:33)
[2018-05-22] MEDS: IOHEXOL 300 MG/ML 100ML VIAL. IART (09:34)
[2018-05-22] MEDS: LIDOCAINE 2% 20 ML VIAL. IJ (09:34)
== END 2018-05-22 13:10 ==
LOC: SURG 07:12
DX: I08.1 Rheumatic disorders of both mitral and tricuspid valves (principal); I27.29 Other secondary pulmonary hypertension; E11.65 Type 2 diabetes mellitus with hyperglycemia; Z87.891 Personal history of nicotine dependence; E11.42 Type 2 diabetes mellitus with diabetic polyneuropathy; I25.10 Atherosclerotic heart disease of native coronary artery without angina pectoris; E78.00 Pure hypercholesterolemia, unspecified; K21.9 Gastro-esophageal reflux disease without esophagitis; I11.0 Hypertensive heart disease with heart failure; I50.32 Chronic diastolic (congestive) heart failure; J44.1 Chronic obstructive pulmonary disease with (acute) exacerbation; Z86.718 Personal history of other venous thrombosis and embolism; Z86.711 Personal history of pulmonary embolism; Z87.01 Personal history of pneumonia (recurrent); E66.9 Obesity, unspecified; Z68.38 Body mass index [BMI] 38.0-38.9, adult; Z87.440 Personal history of urinary (tract) infections; F32.9 Major depressive disorder, single episode, unspecified; Z72.89 Other problems related to lifestyle; Z86.14 Personal history of Methicillin resistant Staphylococcus aureus infection; J96.22 Acute and chronic respiratory failure with hypercapnia; F12.10 Cannabis abuse, uncomplicated; Z83.3 Family history of diabetes mellitus; Z82.49 Family history of ischemic heart disease and other diseases of the circulatory system; Z79.01 Long term (current) use of anticoagulants; G47.33 Obstructive sleep apnea (adult) (pediatric); Z79.4 Long term (current) use of insulin; Z88.0 Allergy status to penicillin; Z88.5 Allergy status to narcotic agent; Z88.8 Allergy status to other drugs, medicaments and biological substances; Z99.81 Dependence on supplemental oxygen
CPT/HCPCS: 36415; 80048; 85027; 85610; 85730; 93312; 93320; 93325; 93460; C1769; C1771; C1773; C1892; G0269; J1644; J2001; J2250; J2704; J3010; Q9967

== ENCOUNTER 2018-06-03 19:13 | Inpatient (IN) | payer OTHER, MEDICAID ==
[2018-06-03] MEDS: FUROSEMIDE 20 MG/2 ML VIAL. IV (19:32)
[2018-06-03] MEDS: methylPREDNISolone SOD SUCC PF 125 MG/2 ML VIAL. IV (19:43)
[2018-06-03 19:47] LABS: ADD MAN DIFF? YES; BASO # 0.1 x10^3/uL (0.0-0.2); BASO % 1 % (0-3); EOS # 0.1 x10^3/uL (0.0-0.7); EOS % 0 % (0-3); HEMATOCRIT 39.3 % (39.0-53.0); HEMOGLOBIN 12.6 g/dL (13.0-17.5); LYMPH # 1.3 x10^3/uL (1.0-4.8); LYMPH % 7 % (24-48); MEAN CORPUSCULAR HEMOGLOBIN 28 pg (25-35); MEAN CORPUSCULAR HGB CONC 32 g/dL (31-37); MEAN CORPUSCULAR VOLUME 86 fL (79-100); MONO # 1.9 x10^3/uL (0.0-1.1); MONO % 10 % (0-9); NEUT # 15.8 x10^3uL (1.8-7.7); NEUT % 82 % (31-73); PLATELET COUNT 399 x10^3/uL (140-400); RED BLOOD COUNT 4.58 x10^6/uL (4.30-5.70); RED CELL DISTRIBUTION WIDTH 18.3 % (11.5-14.5); WHITE BLOOD COUNT 19.2 x10^3/uL (4.0-11.0)
[2018-06-03 19:53] LABS: TROPONIN BY ISTAT 0.04 ng/ml (<0.08)
[2018-06-03 19:55] LABS: INR 2.4 (0.8-1.1)
[2018-06-03 20:02] LABS: ANION GAP 6 (6-14); BLOOD UREA NITROGEN 19 mg/dL (8-26); BUN/CREATININE RATIO 19 (6-20); CALCIUM 8.8 mg/dL (8.5-10.1); CARBON DIOXIDE 38 mmol/L (21-32); CHLORIDE 97 mmol/L (98-107); GFR 82.3; GLUCOSE 285 mg/dL (70-99); SODIUM 141 mmol/L (136-145)
[2018-06-03 20:06] LABS: TROPONINI 0.041 ng/mL (0.000-0.055)
[2018-06-03 20:09] LABS: ALBUMIN 3.1 g/dL (3.4-5.0); ALBUMIN/GLOBULIN RATIO 0.7 (1.0-1.7); ALK PHOS 73 U/L (46-116); ALT (SGPT) 32 U/L (16-63); AST (SGOT) 11 U/L (15-37); CREATINE KINASE 38 U/L (39-308); MAGNESIUM 1.8 mg/dL (1.8-2.4); TOTAL BILIRUBIN 0.6 mg/dL (0.2-1.0); TOTAL PROTEIN 7.5 g/dL (6.4-8.2)
[2018-06-03 20:11] LABS: PH ABG 7.35 (7.35-7.45)
[2018-06-03 20:13] LABS: CKMB MASS 1.1 ng/mL (0.0-3.6); CREATINE KINASE 39 U/L (39-308)
[2018-06-03 20:13] LABS: NT-PRO BNP 3608 pg/mL (0-124)
[2018-06-03 20:14] LABS: PCO2 ABG 71 mmHg (35-46)
[2018-06-03 20:15] LABS: % BANDS 2 % (0-9); % LYMPHS 4 % (24-48); % MONOS 13 % (0-10); % SEGS 81 % (35-66); HCO3 ABG 38 mmol/L (21-28); O2 DELIVERY DEVICE 50% VM; PLT ESTIMATE ADEQUATE (ADEQUATE); SAT O2 ABG 80 % (92-99)
[2018-06-03 20:21] LABS: ANISOCYTOSIS SLIGHT
[2018-06-03 20:37] LABS: LACTIC ACID 2.8 mmol/L (0.4-2.0)
[2018-06-03] MEDS: IPRATRPIUM/ALBUTEROL 0.5/2.5MG 3 ML NEBU. NEB (21:01)
[2018-06-03 21:05] LABS: BILIRUBIN,URINE NEGATIVE (NEG); COLOR,URINE YELLOW; GLUCOSE,URINE >=1000 mg/dL (NEG); NITRITE,URINE NEGATIVE (NEG); PROTEIN,URINE NEGATIVE (NEG-TRACE); UROBILINOGEN,URINE 0.2 mg/dL (0.2 mg/dL)
[2018-06-03 21:10] LABS: BACTERIA,URINE 0 /HPF (0-FEW); CLARITY,URINE CLEAR; RBC,URINE 0 /HPF (0-2); WBC,URINE OCC /HPF (0-4)
[2018-06-03 21:11] LABS: HYALINE CASTS, URINE MODERATE /HPF
[2018-06-03] MEDS ORDERED: ONDANSETRON PF 4 MG/2 ML VIAL. IV (21:15)
[2018-06-03] MEDS ORDERED: NITROGLYCERIN SUBLINGUAL 0.4 MG BOTTLE OF 25. SL (21:15)
[2018-06-03] MEDS ORDERED: ACETAMINOPHEN 325 MG TABLET. PO (21:15)
[2018-06-04 01:19] LABS: LACTIC ACID 2.3 mmol/L (0.4-2.0); TROPONINI 0.027 ng/mL (0.000-0.055)
[2018-06-04] MEDS: IPRATRPIUM/ALBUTEROL 0.5/2.5MG 3 ML NEBU. NEB ×4 (07:47→19:46)
[2018-06-04 08:11] LABS: BASE EXCESS ABG 12 mmol/L (-3-3); HCO3 ABG 40 mmol/L (21-28); PH ABG 7.39 (7.35-7.45); PO2 ABG 73 mmHg (75-108); SAT O2 ABG 94 % (92-99)
[2018-06-04 08:14] LABS: PCO2 ABG 68 mmHg (35-46)
[2018-06-04 08:15] LABS: FIO2 ABG 60
[2018-06-04] MEDS ORDERED: ONDANSETRON PF 4 MG/2 ML VIAL. IV (09:15)
[2018-06-04] MEDS ORDERED: DEXTROSE 50% 25 GM / 50ML DISP.SYRIN. IV (09:15)
[2018-06-04] MEDS: PANTOPRAZOLE 40 MG TABLET.DR. PO (10:00)
[2018-06-04] MEDS: CALCIUM CARB/VIT D3 500/200 TABLET. PO ×2 (10:00→20:04)
[2018-06-04] MEDS: GABAPENTIN 300 MG CAPSULE. PO ×2 (10:00→20:03)
[2018-06-04] MEDS: POTASSIUM CHLORIDE 20 MEQ TABLET.ER. PO (10:00)
[2018-06-04] MEDS: TOLNAFTATE 1% TOPICAL CREAM 15GM TUBE. TP ×2 (10:00→20:05)
[2018-06-04] MEDS: FUROSEMIDE 40 MG/4 ML VIAL. IVP ×2 (10:01→14:02)
[2018-06-04] MEDS: methylPREDNISolone SOD SUCC PF 40 MG/ML VIAL. IV ×3 (10:01→21:28)
[2018-06-04] MEDS: METOPROLOL TART IMMED RELEASE 50 MG TABLET. PO ×2 (10:02→20:04)
[2018-06-04] MEDS: BUDESONIDE 0.5 MG/2 ML NEBU. NEB ×2 (11:47→19:46)
[2018-06-04] MEDS: ALBUTEROL SULFATE 2.5 MG/3 ML NEBU. NEB ×3 (11:47→19:47)
[2018-06-04] MEDS: glipiZIDE 5 MG TABLET PO ×2 (11:58→17:29)
[2018-06-04] MEDS: INSULIN LISPRO 300 UNITS/3 ML INSULN.PEN. SQ ×4 (11:58→17:31)
[2018-06-04 12:02] LABS: POC GLUCOSE 447 mg/dL (70-99)
[2018-06-04 13:14] LABS: PO2 ABG 50 mmHg (75-108)
[2018-06-04 15:11] LABS: MRSA BY PCR Positive (Negative)
[2018-06-04] MEDS: WARFARIN 5 MG TABLET. PO (17:29)
[2018-06-04] MEDS ORDERED: CICLESONIDE 160 MCG IH (18:00)
[2018-06-04] MEDS: ATORVASTATIN CALCIUM 40 MG TABLET. PO (20:04)
[2018-06-04] MEDS: MIRTAZAPINE 15 MG TABLET PO (20:04)
[2018-06-04] MEDS: INSULIN GLARGINE 300 UNITS/3 ML INSULN.PEN. SQ (20:05)
[2018-06-04] MEDS: IV NORMAL SALINE 1000ML BAG 1,000 ML IV (20:36)
[2018-06-04] MEDS ORDERED: INSULIN GLARGINE 300 UNITS/3 ML INSULN.PEN. SQ (21:00)
[2018-06-05 03:29] LABS: POC GLUCOSE 312 mg/dL (70-99)
[2018-06-05 03:29] LABS: POC GLUCOSE 286 mg/dL (70-99)
[2018-06-05 05:55] LABS: INR 3.6 (0.8-1.1); PROTHROMBIN TIME PATIENT 35.3 SEC (11.7-14.0)
[2018-06-05] MEDS: methylPREDNISolone SOD SUCC PF 40 MG/ML VIAL. IV ×3 (06:28→22:12)
[2018-06-05] MEDS: IPRATRPIUM/ALBUTEROL 0.5/2.5MG 3 ML NEBU. NEB (07:32)
[2018-06-05] MEDS: BUDESONIDE 0.5 MG/2 ML NEBU. NEB ×2 (07:32→18:45)
[2018-06-05 07:49] LABS: BASE EXCESS ABG 13 mmol/L (-3-3); HCO3 ABG 39 mmol/L (21-28); PH ABG 7.42 (7.35-7.45); PO2 ABG 69 mmHg (75-108); SAT O2 ABG 93 % (92-99)
[2018-06-05 07:52] LABS: PCO2 ABG 61 mmHg (35-46)
[2018-06-05 07:53] LABS: FIO2 ABG 50
[2018-06-05] MEDS: glipiZIDE 5 MG TABLET PO ×2 (07:59→15:52)
[2018-06-05] MEDS: METOPROLOL TART IMMED RELEASE 50 MG TABLET. PO ×2 (07:59→22:11)
[2018-06-05] MEDS: FUROSEMIDE 40 MG/4 ML VIAL. IVP ×2 (07:59→15:52)
[2018-06-05] MEDS: PANTOPRAZOLE 40 MG TABLET.DR. PO (07:59)
[2018-06-05] MEDS: GABAPENTIN 300 MG CAPSULE. PO ×2 (07:59→22:10)
[2018-06-05] MEDS: CALCIUM CARB/VIT D3 500/200 TABLET. PO ×2 (07:59→22:09)
[2018-06-05] MEDS: POTASSIUM CHLORIDE 20 MEQ TABLET.ER. PO (08:01)
[2018-06-05] MEDS: INSULIN LISPRO 300 UNITS/3 ML INSULN.PEN. SQ ×6 (08:03→17:17)
[2018-06-05] MEDS: INSULIN GLARGINE 300 UNITS/3 ML INSULN.PEN. SQ ×2 (08:04→22:30)
[2018-06-05] MEDS: TOLNAFTATE 1% TOPICAL CREAM 15GM TUBE. TP ×2 (08:05→22:20)
[2018-06-05 08:09] LABS: POC GLUCOSE 268 mg/dL (70-99)
[2018-06-05] MEDS ORDERED: NON FORMULARY ITEM (Warfarin Sodium 1 TAB) PO (09:00)
[2018-06-05] MEDS: ALBUTEROL SULFATE 2.5 MG/3 ML NEBU. NEB ×3 (11:55→18:45)
[2018-06-05] MEDS: ASCORBIC ACID 500 MG TABLET PO (12:06)
[2018-06-05] MEDS: MULTIVITAMIN with MINERAL TABLET. PO (12:06)
[2018-06-05 12:12] LABS: POC GLUCOSE 338 mg/dL (70-99)
[2018-06-05 17:02] LABS: POC GLUCOSE 293 mg/dL (70-99)
[2018-06-05 21:03] LABS: POC GLUCOSE 295 mg/dL (70-99)
[2018-06-05] MEDS: MIRTAZAPINE 15 MG TABLET PO (22:10)
[2018-06-05] MEDS: ATORVASTATIN CALCIUM 40 MG TABLET. PO (22:10)
[2018-06-06] MEDS: methylPREDNISolone SOD SUCC PF 40 MG/ML VIAL. IV (05:24)
[2018-06-06 05:43] LABS: ADD MAN DIFF? NO
[2018-06-06 05:47] LABS: BASO % 0 % (0-3); EOS % 0 % (0-3); HEMOGLOBIN 11.1 g/dL (13.0-17.5); LYMPH # 0.4 x10^3/uL (1.0-4.8); LYMPH % 2 % (24-48); MEAN CORPUSCULAR HEMOGLOBIN 27 pg (25-35); MEAN CORPUSCULAR HGB CONC 32 g/dL (31-37); MEAN CORPUSCULAR VOLUME 85 fL (79-100); MONO # 0.9 x10^3/uL (0.0-1.1); MONO % 5 % (0-9); NEUT # 17.4 x10^3uL (1.8-7.7); NEUT % 93 % (31-73); PLATELET COUNT 362 x10^3/uL (140-400); RED BLOOD COUNT 4.11 x10^6/uL (4.30-5.70); RED CELL DISTRIBUTION WIDTH 18.1 % (11.5-14.5); WHITE BLOOD COUNT 18.7 x10^3/uL (4.0-11.0)
[2018-06-06 05:58] LABS: INR 2.7 (0.8-1.1)
[2018-06-06 05:59] LABS: BLOOD UREA NITROGEN 22 mg/dL (8-26); CALCIUM 8.6 mg/dL (8.5-10.1); CARBON DIOXIDE 39 mmol/L (21-32); CREATININE 0.8 mg/dL (0.7-1.3); GFR 106.5; GLUCOSE 304 mg/dL (70-99); SODIUM 138 mmol/L (136-145)
[2018-06-06 06:07] LABS: ANION GAP 1 (6-14); CHLORIDE 98 mmol/L (98-107); POTASSIUM 4.2 mmol/L (3.5-5.1)
[2018-06-06] MEDS: BUDESONIDE 0.5 MG/2 ML NEBU. NEB ×2 (07:11→19:13)
[2018-06-06] MEDS: ALBUTEROL SULFATE 2.5 MG/3 ML NEBU. NEB ×4 (07:11→19:13)
[2018-06-06 07:52] LABS: POC GLUCOSE 297 mg/dL (70-99)
[2018-06-06] MEDS: CALCIUM CARB/VIT D3 500/200 TABLET. PO ×2 (08:34→20:44)
[2018-06-06] MEDS: glipiZIDE 5 MG TABLET PO ×2 (08:34→17:50)
[2018-06-06] MEDS: MULTIVITAMIN with MINERAL TABLET. PO (08:34)
[2018-06-06] MEDS: ASCORBIC ACID 500 MG TABLET PO (08:35)
[2018-06-06] MEDS: POTASSIUM CHLORIDE 20 MEQ TABLET.ER. PO (08:35)
[2018-06-06] MEDS: PANTOPRAZOLE 40 MG TABLET.DR. PO (08:35)
[2018-06-06] MEDS: METOPROLOL TART IMMED RELEASE 50 MG TABLET. PO ×2 (08:35→20:43)
[2018-06-06] MEDS: FUROSEMIDE 40 MG/4 ML VIAL. IVP ×2 (08:36→17:50)
[2018-06-06] MEDS: TOLNAFTATE 1% TOPICAL CREAM 15GM TUBE. TP ×2 (08:36→21:00)
[2018-06-06] MEDS: GABAPENTIN 300 MG CAPSULE. PO ×2 (08:36→20:44)
[2018-06-06] MEDS: INSULIN LISPRO 300 UNITS/3 ML INSULN.PEN. SQ ×6 (08:50→18:00)
[2018-06-06] MEDS: INSULIN GLARGINE 300 UNITS/3 ML INSULN.PEN. SQ ×2 (08:52→20:50)
[2018-06-06 11:15] LABS: POC GLUCOSE 325 mg/dL (70-99)
[2018-06-06 17:50] LABS: POC GLUCOSE 203 mg/dL (70-99)
[2018-06-06] MEDS: WARFARIN 2.5 MG TABLET. PO (17:50)
[2018-06-06 20:40] LABS: POC GLUCOSE 163 mg/dL (70-99)
[2018-06-06] MEDS: MIRTAZAPINE 15 MG TABLET PO (20:43)
[2018-06-06] MEDS: ATORVASTATIN CALCIUM 40 MG TABLET. PO (20:44)
[2018-06-07 05:38] LABS: PROTHROMBIN TIME PATIENT 22.4 SEC (11.7-14.0)
[2018-06-07] MEDS: BUDESONIDE 0.5 MG/2 ML NEBU. NEB ×2 (07:44→21:24)
[2018-06-07] MEDS: ALBUTEROL SULFATE 2.5 MG/3 ML NEBU. NEB ×4 (07:45→21:23)
[2018-06-07] MEDS: INSULIN LISPRO 300 UNITS/3 ML INSULN.PEN. SQ ×6 (08:00→17:21)
[2018-06-07] MEDS: predniSONE 20 MG TABLET PO (08:16)
[2018-06-07] MEDS: GABAPENTIN 300 MG CAPSULE. PO ×2 (08:17→21:25)
[2018-06-07] MEDS: glipiZIDE 5 MG TABLET PO ×2 (08:17→15:56)
[2018-06-07] MEDS: PANTOPRAZOLE 40 MG TABLET.DR. PO (08:17)
[2018-06-07] MEDS: MULTIVITAMIN with MINERAL TABLET. PO (08:17)
[2018-06-07] MEDS: ASCORBIC ACID 500 MG TABLET PO (08:17)
[2018-06-07] MEDS: POTASSIUM CHLORIDE 20 MEQ TABLET.ER. PO (08:17)
[2018-06-07] MEDS: CALCIUM CARB/VIT D3 500/200 TABLET. PO ×2 (08:17→21:25)
[2018-06-07] MEDS: METOPROLOL TART IMMED RELEASE 50 MG TABLET. PO ×2 (08:18→21:25)
[2018-06-07] MEDS: INSULIN GLARGINE 300 UNITS/3 ML INSULN.PEN. SQ ×2 (08:35→21:43)
[2018-06-07] MEDS: FUROSEMIDE 40 MG/4 ML VIAL. IVP ×2 (09:42→15:56)
[2018-06-07] MEDS: TOLNAFTATE 1% TOPICAL CREAM 15GM TUBE. TP ×2 (09:43→21:00)
[2018-06-07 11:12] LABS: POC GLUCOSE 71 mg/dL (70-99)
[2018-06-07 11:12] LABS: POC GLUCOSE 138 mg/dL (70-99)
[2018-06-07] MEDS: WARFARIN 5 MG TABLET. PO (15:56)
[2018-06-07 16:35] LABS: POC GLUCOSE 215 mg/dL (70-99)
[2018-06-07 21:06] LABS: POC GLUCOSE 137 mg/dL (70-99)
[2018-06-07] MEDS: ATORVASTATIN CALCIUM 40 MG TABLET. PO (21:25)
[2018-06-07] MEDS: MIRTAZAPINE 15 MG TABLET PO (21:25)
[2018-06-08 04:45] LABS: INR 1.7 (0.8-1.1); PROTHROMBIN TIME PATIENT 19.5 SEC (11.7-14.0)
[2018-06-08 07:53] LABS: POC GLUCOSE 65 mg/dL (70-99)
[2018-06-08] MEDS: INSULIN LISPRO 300 UNITS/3 ML INSULN.PEN. SQ ×6 (08:00→18:32)
[2018-06-08] MEDS: BUDESONIDE 0.5 MG/2 ML NEBU. NEB ×2 (08:06→20:22)
[2018-06-08] MEDS: ALBUTEROL SULFATE 2.5 MG/3 ML NEBU. NEB ×4 (08:06→20:22)
[2018-06-08] MEDS: ASCORBIC ACID 500 MG TABLET PO (11:03)
[2018-06-08 11:04] LABS: POC GLUCOSE 113 mg/dL (70-99)
[2018-06-08] MEDS: glipiZIDE 5 MG TABLET PO ×2 (11:04→15:50)
[2018-06-08] MEDS: MULTIVITAMIN with MINERAL TABLET. PO (11:04)
[2018-06-08] MEDS: POTASSIUM CHLORIDE 20 MEQ TABLET.ER. PO (11:04)
[2018-06-08] MEDS: GABAPENTIN 300 MG CAPSULE. PO ×2 (11:04→21:35)
[2018-06-08] MEDS: predniSONE 20 MG TABLET PO (11:04)
[2018-06-08] MEDS: FUROSEMIDE 40 MG/4 ML VIAL. IVP ×2 (11:05→15:50)
[2018-06-08] MEDS: METOPROLOL TART IMMED RELEASE 50 MG TABLET. PO ×2 (11:05→21:35)
[2018-06-08] MEDS: PANTOPRAZOLE 40 MG TABLET.DR. PO (11:05)
[2018-06-08] MEDS: CALCIUM CARB/VIT D3 500/200 TABLET. PO ×2 (11:05→21:35)
[2018-06-08] MEDS: TOLNAFTATE 1% TOPICAL CREAM 15GM TUBE. TP ×2 (11:07→21:00)
[2018-06-08] MEDS: INSULIN GLARGINE 300 UNITS/3 ML INSULN.PEN. SQ ×2 (11:19→21:40)
[2018-06-08] MEDS: WARFARIN 5 MG TABLET. PO (15:50)
[2018-06-08 17:46] LABS: POC GLUCOSE 341 mg/dL (70-99)
[2018-06-08 21:17] LABS: POC GLUCOSE 195 mg/dL (70-99)
[2018-06-08] MEDS: ATORVASTATIN CALCIUM 40 MG TABLET. PO (21:34)
[2018-06-08] MEDS: MIRTAZAPINE 15 MG TABLET PO (21:34)
[2018-06-09 06:01] LABS: INR 1.5 (0.8-1.1); PROTHROMBIN TIME PATIENT 17.3 SEC (11.7-14.0)
[2018-06-09] MEDS: INSULIN LISPRO 300 UNITS/3 ML INSULN.PEN. SQ ×4 (07:44→12:02)
[2018-06-09 07:56] LABS: POC GLUCOSE 64 mg/dL (70-99)
[2018-06-09] MEDS: POTASSIUM CHLORIDE 20 MEQ TABLET.ER. PO (08:00)
[2018-06-09] MEDS: ALBUTEROL SULFATE 2.5 MG/3 ML NEBU. NEB ×2 (08:00→11:50)
[2018-06-09] MEDS: BUDESONIDE 0.5 MG/2 ML NEBU. NEB (08:00)
[2018-06-09] MEDS: INSULIN GLARGINE 300 UNITS/3 ML INSULN.PEN. SQ ×2 (08:00→12:05)
[2018-06-09 08:16] LABS: POC GLUCOSE 54 mg/dL (70-99)
[2018-06-09] MEDS: TOLNAFTATE 1% TOPICAL CREAM 15GM TUBE. TP (09:00)
[2018-06-09] MEDS: glipiZIDE 5 MG TABLET PO (09:31)
[2018-06-09] MEDS: guaiFENesin DM 200MG/20MG 10 ML SYRUP PO (09:31)
[2018-06-09] MEDS: CALCIUM CARB/VIT D3 500/200 TABLET. PO (09:31)
[2018-06-09] MEDS: GABAPENTIN 300 MG CAPSULE. PO (09:32)
[2018-06-09] MEDS: predniSONE 20 MG TABLET PO (09:32)
[2018-06-09] MEDS: CALCIUM CARBONATE 500 MG TAB.CHEW PO (09:32)
[2018-06-09] MEDS: PANTOPRAZOLE 40 MG TABLET.DR. PO (09:32)
[2018-06-09] MEDS: METOPROLOL TART IMMED RELEASE 50 MG TABLET. PO (09:32)
[2018-06-09] MEDS: MULTIVITAMIN with MINERAL TABLET. PO (09:33)
[2018-06-09] MEDS: ASCORBIC ACID 500 MG TABLET PO (09:33)
[2018-06-09 09:44] LABS: POC GLUCOSE 105 mg/dL (70-99)
[2018-06-09] MEDS: FUROSEMIDE 40 MG/4 ML VIAL. IVP ×2 (09:51→14:02)
[2018-06-09 11:03] LABS: POC GLUCOSE 172 mg/dL (70-99)
[2018-06-09] MEDS ORDERED: WARFARIN 7.5 MG TABLET. PO (16:00)
== END 2018-06-09 15:35 | disposition home or self-care (01) | DRG 871 ==
LOC: 5 SOUTH 06-05 16:28 → ER 19:13 → 1 WEST ICU 21:05
PROC: 5A09457 Assistance with Respiratory Ventilation, 24-96 Consecutive Hours, Continuous Positive Airway Pressure (ICD-10-PCS; principal; 2018-06-03)
PROC: 5A09357 Assistance with Respiratory Ventilation, Less than 24 Consecutive Hours, Continuous Positive Airway Pressure (ICD-10-PCS; 2018-06-06)
DX: A41.9 Sepsis, unspecified organism (principal); I50.33 Acute on chronic diastolic (congestive) heart failure; J96.21 Acute and chronic respiratory failure with hypoxia; J96.22 Acute and chronic respiratory failure with hypercapnia; J44.1 Chronic obstructive pulmonary disease with (acute) exacerbation; I82.409 Acute embolism and thrombosis of unspecified deep veins of unspecified lower extremity; J84.9 Interstitial pulmonary disease, unspecified; F32.9 Major depressive disorder, single episode, unspecified; I11.0 Hypertensive heart disease with heart failure; I07.1 Rheumatic tricuspid insufficiency; E78.5 Hyperlipidemia, unspecified; D86.9 Sarcoidosis, unspecified; G47.33 Obstructive sleep apnea (adult) (pediatric); I27.20 Pulmonary hypertension, unspecified; E11.65 Type 2 diabetes mellitus with hyperglycemia; E66.01 Morbid (severe) obesity due to excess calories; E78.00 Pure hypercholesterolemia, unspecified; Z79.52 Long term (current) use of systemic steroids; Z99.81 Dependence on supplemental oxygen; Z88.5 Allergy status to narcotic agent; Z88.0 Allergy status to penicillin; Z91.041 Radiographic dye allergy status; Z79.4 Long term (current) use of insulin; Z87.891 Personal history of nicotine dependence; Z79.01 Long term (current) use of anticoagulants; Z86.711 Personal history of pulmonary embolism; Z83.3 Family history of diabetes mellitus; Z82.49 Family history of ischemic heart disease and other diseases of the circulatory system
CPT/HCPCS: 36415; 36600; 71045; 80048; 80053; 81001; 82550; 82553; 82805; 82962; 83605; 83735; 83880; 84484; 85007; 85025; 85610; 87040; 87641; 93005; 94618; 94640; 94660; 94760; 96365; 96372; 96375; 99285; 99285-25; J1815; J1940; J1956; J2920; J2930; J7512; J7613; J7620; J7626